=== PATIENT | female | born 1945 | race Caucasian/White ===

== ENCOUNTER 2018-03-04 10:20 | Inpatient (IN) | payer MEDICARE, MEDICAID ==
[~2018-03-04] VITALS: Ht 172.7 cm; Wt 95.2 kg
[2018-03-04] VITALS (13 sets, daily range): BP systolic 71–89; BP diastolic 53–67
[~2018-03-04 10:20] MED LIST: ALEN70TA13 PO; CLON-527 PO; DOXE50CA4 PO; GABA-532 PO; HYDR-4353 PO; LANS30CA56 PO; LEVO100T PO; LISI10TA4 PO; ROPI1TAB2 PO; VERA240C2 PO; etomidate 2mg/ml inj. ONE
[2018-03-04] MEDS ORDERED: normal saline 1000ML IV soln IV ONE (10:35)
--- NOTE | 2018-03-04 10:40 | NUR ---
DR STRICKLAND NOTIFIES OF PT BP 68/32. DR STRICKLAND AT BEDSIDE.
--- NOTE | 2018-03-04 11:22 | NUR ---
PT BACK FROM CT ACCOMPANIED BY MARTA ROB
[2018-03-04 11:35] LABS: ALBUMIN 2.4 G/DL (3.4-5.0); ANION GAP 20 (8-16); BILIRUBIN,TOTAL 2.2 MG/DL (0.1-1.0); BLOOD UREA NITROGEN 70 MG/DL (7-18); BUN/CREATININE RATIO 23.6 (6.6-38.0); CALCIUM 7.6 MG/DL (8.5-10.1); CHLORIDE 97 MMOL/L (99-107); CREATININE 2.96 MG/DL (0.40-0.90); GLUCOSE 91 MG/DL (70-104); MAGNESIUM 1.2 MG/DL (1.5-2.4); SODIUM 140 MMOL/L (135-145); TOTAL CARBON DIOXIDE 23.4 MMOL/L (24-32); TOTAL PROTEIN 5.6 G/DL (6.4-8.2); eGFR 15 ML/MIN
[2018-03-04 11:36] LABS: ALANINE AMINOTRANSFERASE 607 U/L (12-78); ALBUMIN/GLOBULIN RATIO 0.8 (1.1-1.5); ALKALINE PHOSPHATASE 238 IU/L (46-116); ASPARTATE AMINO TRANSFERASE 186 U/L (10-37); LIPASE 51 U/L (73-393)
[2018-03-04 11:38] LABS: INR 1.1 INR; PARTIAL THROMBOPLASTIN TIME 37 SECONDS (22-32); PROTHROMBIN TIME 11.4 SECONDS (9.0-12.0)
[2018-03-04 11:39] LABS: POTASSIUM 2.4 MMOL/L (3.5-5.1)
[2018-03-04] MEDS ORDERED: potassium Cl 40 mEq/NS 500ml IV ONE (11:40)
[2018-03-04] MEDS ORDERED: normal saline 1000ML IV soln IVB ONE ×2 (11:45→12:25)
[2018-03-04] MEDS ORDERED: Potassium Cl 40 MEQ in NS 500 ML IV ONE (11:50)
[2018-03-04 11:56] LABS: BASOPHILS % (AUTO) 0.1 % (0-1); EOSINOPHILS % (AUTO) 0.1 % (0-6); HEMATOCRIT 38.6 % (35.0-45.0); HEMOGLOBIN 12.8 g/dl (12.0-16.0); LYMPHOCYTES # (AUTO) 0.2 X10'3 (1.1-4.8); LYMPHOCYTES % (AUTO) 5.2 % (21-51); MEAN CORPUSCULAR HEMOGLOBIN 31.7 PG (27.0-31.0); MEAN CORPUSCULAR HGB CONC 33.2 % (33.0-36.5); MEAN CORPUSCULAR VOLUME 95.5 FL (78-98); MEAN PLATELET VOLUME 8.8 FL (7.4-10.4); MONOCYTES # (AUTO) 0.2 X10'3 (0-0.9); MONOCYTES % (AUTO) 6.1 % (2-12); NEUTROPHILS % (AUTO) 88.5 % (42-75); PLATELET COUNT 151 X10'3 (140-440); RED BLOOD COUNT 4.04 X10'6 (4.20-5.60); WHITE BLOOD COUNT 3.4 X10'3 (4.5-11.0)
[2018-03-04] MEDS ORDERED: levoFLOXACIN-Levaquin 750MG/D5 150 ML IV ONE (12:05)
[2018-03-04] MEDS ORDERED: metroNIDAZOLE-Flagyl 500mg/NS 100 ML IV ONE (12:05)
[2018-03-04 12:13] LABS: PLATELET ESTIMATE NORMAL; TOTAL CELLS COUNTED 100
[2018-03-04] MEDS ORDERED: potassium Cl 40MEQ/250ML bag 250 ML IV PRN ×2 (12:15→17:05)
[2018-03-04] MEDS ORDERED: ondansetron/PF 4mg/2ml inj IV PRN (12:15)
[2018-03-04] MEDS ORDERED: potassium Cl 20 mEq SR tablet PO PRN ×2 (12:15)
[2018-03-04] MEDS ORDERED: potassium Cl 40MEQ/250ML bag 250 ML IV SCH (12:15)
[2018-03-04] MEDS ORDERED: potassium Cl 40MEQ/NS 500ml 500 ML IV PRN ×2 (12:15)
[2018-03-04] MEDS ORDERED: acetaminophen 325mg tablet PO PRN ×2 (12:15)
[2018-03-04 12:23] LABS: CLARITY,URINE CLOUDY (Clear); COLOR,URINE BROWN (Yellow); GLUCOSE, URINE 100 mg/dl (Neg); KETONES,URINE TRACE mg/dl (Neg); LEUKOCYTE ESTERASE ,URINE NEGATIVE (Neg); OCCULT BLOOD,URINE NEGATIVE (Neg); PROTEIN,URINE 30 mg/dl (Neg)
[2018-03-04 12:25] LABS: UA COLLECTION TYPE FOLEY CATH
[2018-03-04 12:28] LABS: NITRITES, URINE NEGATIVE (Neg)
[2018-03-04 12:32] LABS: AMORPHOUS URATES 3+; BACTERIA,URINE FEW /HPF (Neg); SQUAMOUS EPITHELIAL CELL,UR FEW /LPF (FEW)
--- NOTE | 2018-03-04 12:40 | NUR ---
DR STRICKLAND AT BEDSIDE PLACING A 4 LUMEN CENTRAL LINE
[2018-03-04] MEDS: normal saline 1000ml 1,000 ML IV SCH ×2 (13:05→20:20)
[2018-03-04] MEDS: NORepinephrine 8mg/ 250ml NS 250 ML IV SCH ×2 (13:19→22:50)
--- NOTE | 2018-03-04 13:47 | NUR ---
NG TUBE SECRETIONS IN CANNISTER 900 MLS. COLOR IS GREEN AND CLOUDY.
--- NOTE | 2018-03-04 14:45 | NUR ---
Patient in room CICU 2011. I have received report from Er nurse Carola and had the opportunity to ask questions and assume patient care.
[2018-03-04 14:47] LABS: UA EOSINOPHILS NO EOS /HPF
[2018-03-04] MEDS: morphine 4 MG/ML inj SYRINge IV PRN ×2 (14:55→20:55)
[2018-03-04 15:21] LABS: OXYGEN SATURATION (MIXED VEN) 65.6 % (60-80); PO2 MIXED VENOUS (TEMP COR) 35.8 mmHg (35-46)
[2018-03-04] MEDS ORDERED: metroNIDAZOLE-Flagyl 500mg/NS 100 ML IV SCH (16:00)
[2018-03-04 16:57] LABS: POTASSIUM 3.2 MMOL/L (3.5-5.1)
[2018-03-04] MEDS ORDERED: magnesium 4gm in 100ml NS 100 ML IV PRN (17:05)
[2018-03-04] MEDS ORDERED: magnesium Cl slow-release 64mg tablet PO PRN (17:05)
--- NOTE | 2018-03-04 18:40 | NUR ---
I have received report and assumed care of pt, pt resting in bed rise and fall of chest cavity equile and symmetrical. pt on Levophed via cvl to keep MAP greater then 65, pt is in a ST rate in the 115 range, electrolytes replaced per md orders, abdomen is tender and firm, pt able to speak in 3 to 4 sentences, resp are gagged and grunting, minimal urine output, spoke to oncall BIG DATA HADOOP DEVELOPER who will be in to evaluate pt.
[2018-03-04] MEDS: docusate sod 100mg capsule PO SCH (20:00)
[2018-03-04] MEDS: lactobacillus rhamnosus 10,000 MMU CELLS/CAPSULE PO SCH (20:00)
[2018-03-04] MEDS ORDERED: dextrose 50%-water 50ml dispensing syringe IV ONE (20:15)
--- NOTE | 2018-03-04 20:20 | NUR ---
pts blood pressure continues to decrease PA at bedside evaluating pt, he has made multiple calls to the data modeler, reservations sales agent NATALIIA KC and Dr. Jolley, orders received for albumin and a ns bolus max amount of Levophed infusing, vasopressin added per ECHOCARDIOGRAPHER orders Dr. Lacy contacted Dr Jolley who came in and evaluated pt. new orders received to fluid bolus pt with NS to keep CVP greater then 12 and for NG treatment
[2018-03-04 20:23] LABS: BASOPHILS % (AUTO) 0.1 % (0-1); EOSINOPHILS # (AUTO) 0.1 X10'3 (0-0.9); EOSINOPHILS % (AUTO) 2.6 % (0-6); HEMATOCRIT 38.4 % (35.0-45.0); LYMPHOCYTES # (AUTO) 0.1 X10'3 (1.1-4.8); LYMPHOCYTES % (AUTO) 2.1 % (21-51); MEAN CORPUSCULAR HEMOGLOBIN 32.3 PG (27.0-31.0); MEAN CORPUSCULAR HGB CONC 33.9 % (33.0-36.5); MEAN CORPUSCULAR VOLUME 95.3 FL (78-98); MEAN PLATELET VOLUME 9.1 FL (7.4-10.4); MONOCYTES % (AUTO) 0.3 % (2-12); NEUTROPHILS # (AUTO) 5.2 X10'3 (1.8-7.7); NEUTROPHILS % (AUTO) 94.9 % (42-75); PLATELET COUNT 150 X10'3 (140-440); RED BLOOD COUNT 4.03 X10'6 (4.20-5.60); RED CELL DISTRIBUTION WIDTH 13.9 % (11.5-14.5); WHITE BLOOD COUNT 5.4 X10'3 (4.5-11.0)
[2018-03-04] MEDS: famotidine/PF 10 mg/ml inj IV SCH (20:25)
[2018-03-04 20:32] LABS: ALANINE AMINOTRANSFERASE 473 U/L (12-78); ALBUMIN/GLOBULIN RATIO 0.6 (1.1-1.5); ANION GAP 16 (8-16); ASPARTATE AMINO TRANSFERASE 114 U/L (10-37); BILIRUBIN,TOTAL 1.8 MG/DL (0.1-1.0); BLOOD UREA NITROGEN 69 MG/DL (7-18); CALCIUM 6.4 MG/DL (8.5-10.1); CHLORIDE 104 MMOL/L (99-107); CREATININE 2.46 MG/DL (0.40-0.90); GLUCOSE 67 MG/DL (70-104); POTASSIUM 3.1 MMOL/L (3.5-5.1); SODIUM 142 MMOL/L (135-145); TOTAL CARBON DIOXIDE 22.1 MMOL/L (24-32); TOTAL PROTEIN 5.1 G/DL (6.4-8.2); eGFR 19 ML/MIN
[2018-03-04 20:33] LABS: ALKALINE PHOSPHATASE 179 IU/L (46-116)
[2018-03-04 20:39] LABS: PHOSPHORUS 5.3 MG/DL (2.3-4.5)
[2018-03-04 20:40] LABS: MAGNESIUM 0.9 MG/DL (1.5-2.4)
[2018-03-04] MEDS: magnesium 2GM in 50ml NS 50 ML IV PRN (20:56)
[2018-03-04] MEDS ORDERED: HYDROmorphone/NS 1 mg/ml CADD 50 ML IV SCH (21:20)
[2018-03-04] MEDS ORDERED: sodium bicarbonate (8.4%) inj. 75 MEQ in sodium chloride 0.45% 1,025 ML IV SCH (21:20)
[2018-03-04] MEDS: potassium Cl 40MEQ/250ML bag 250 ML IV PRN (21:27)
[2018-03-04] MEDS ORDERED: vancomycin/NS 1 GM ADD-VANTAGE 250 ML IV ONE (22:00)
[2018-03-04] MEDS ORDERED: albumin (Human) 5% 250ml 250 ML IV ONE (22:30)
[2018-03-04] MEDS ORDERED: albumin (Human) 5% 250ml 500 ML IV ONE (22:32)
[2018-03-04] MEDS: vasopressin inj. 60 UNIT in normal saline 100ml IV soln 97 ML IV SCH (22:50)
[2018-03-04] MEDS: albumin (Human) 5% 250ml 250 ML IV SCH ×2 (22:53→23:04)
[2018-03-04 22:56] LABS: ABG HCO3 18.9 mmol/L (22.0-26.0); ABG OXYGEN SATURATION 94.4 % (95-98); ABG PCO2 (T) 36.2 mmHg (32.0-45.0); ABG PH (T) 7.337 (7.350-7.450); ABG PO2 (T) 80.7 mmHg (83-108); ALLEN'S TEST Positive; FCOHb 1.3 % (0.5-1.5); FLOW 4 L/min; FMetHb 0.2 % (0.3-1.12); PATIENT TEMPERATURE 37.4; RESPIRATORY RATE (OBSERVED) 22 b/min; TOTAL HEMOGLOBIN 13.1 G/dl (12.0-16.0)
[2018-03-04] MEDS ORDERED: meropenem inj 1 GM in normal saline 100ml IV soln 100 ML IV SCH (23:00)
[2018-03-04 23:03] LABS: AMYLASE 13 U/L (25-115); LIPASE < 50 U/L (73-393)
[2018-03-04] MEDS: hydrocortisone sod succ/PF 100mg/2ml inj. IV SCH (23:13)
[2018-03-05] VITALS (24 sets, daily range): BP systolic 72–116; BP diastolic 51–73
[2018-03-05] MEDS ORDERED: fluconazole-Diflucan 200mg/NS 100 ML IV SCH
[2018-03-05] MEDS: normal saline 1000ml 1,000 ML IV SCH ×4 (01:51→21:51)
[2018-03-05 03:13] LABS: ANION GAP 16 (8-16); BASOPHILS % (AUTO) 0 % (0-1); BLOOD UREA NITROGEN 65 MG/DL (7-18); BUN/CREATININE RATIO 29.4 (6.6-38.0); CHLORIDE 106 MMOL/L (99-107); CREATININE 2.21 MG/DL (0.40-0.90); EOSINOPHILS % (AUTO) 0 % (0-6); GLUCOSE 75 MG/DL (70-104); HEMATOCRIT 36.3 % (35.0-45.0); HEMOGLOBIN 11.8 g/dl (12.0-16.0); LYMPHOCYTES # (AUTO) 0.2 X10'3 (1.1-4.8); LYMPHOCYTES % (AUTO) 1.7 % (21-51); MEAN CORPUSCULAR HEMOGLOBIN 31.9 PG (27.0-31.0); MEAN CORPUSCULAR HGB CONC 32.7 % (33.0-36.5); MEAN CORPUSCULAR VOLUME 97.7 FL (78-98); MEAN PLATELET VOLUME 9.4 FL (7.4-10.4); MONOCYTES # (AUTO) 0.1 X10'3 (0-0.9); MONOCYTES % (AUTO) 0.7 % (2-12); NEUTROPHILS # (AUTO) 9.7 X10'3 (1.8-7.7); NEUTROPHILS % (AUTO) 97.6 % (42-75); PLATELET COUNT 132 X10'3 (140-440); POTASSIUM 3.5 MMOL/L (3.5-5.1); RED BLOOD COUNT 3.71 X10'6 (4.20-5.60); RED CELL DISTRIBUTION WIDTH 13.9 % (11.5-14.5); SODIUM 142 MMOL/L (135-145); WHITE BLOOD COUNT 9.9 X10'3 (4.5-11.0)
[2018-03-05 03:14] LABS: ALANINE AMINOTRANSFERASE 375 U/L (12-78); ALBUMIN 2.3 G/DL (3.4-5.0); ALBUMIN/GLOBULIN RATIO 0.9 (1.1-1.5); ALKALINE PHOSPHATASE 147 IU/L (46-116); AMYLASE 10 U/L (25-115); ASPARTATE AMINO TRANSFERASE 79 U/L (10-37); BILIRUBIN,TOTAL 1.8 MG/DL (0.1-1.0); CALCIUM 6.2 MG/DL (8.5-10.1); LIPASE < 50 U/L (73-393); MAGNESIUM 2.5 MG/DL (1.5-2.4); PHOSPHORUS 5.5 MG/DL (2.3-4.5); eGFR 22 ML/MIN
[2018-03-05] MEDS: diatr meglu/diatrizoate 30ml oral sol.-(3 dose) bottle PO SCH ×2 (06:00)
--- NOTE | 2018-03-05 06:29 | NUR ---
report given to rec rn plan of care reviewed
[2018-03-05] MEDS: docusate sod 100mg capsule PO SCH ×2 (06:45→19:07)
[2018-03-05] MEDS: morphine 4 MG/ML inj SYRINge IV PRN ×5 (06:59→23:14)
--- NOTE | 2018-03-05 07:00 | NUR ---
Patient's MAP greater that 60, able to titrate Vasopressin OFF
[2018-03-05 07:36] LABS: ALANINE AMINOTRANSFERASE 326 U/L (12-78); ALBUMIN/GLOBULIN RATIO 0.8 (1.1-1.5); ALKALINE PHOSPHATASE 132 IU/L (46-116); ANION GAP 16 (8-16); ASPARTATE AMINO TRANSFERASE 64 U/L (10-37); BILIRUBIN,TOTAL 1.7 MG/DL (0.1-1.0); BLOOD UREA NITROGEN 61 MG/DL (7-18); BUN/CREATININE RATIO 31.4 (6.6-38.0); CHLORIDE 109 MMOL/L (99-107); CREATININE 1.94 MG/DL (0.40-0.90); GLUCOSE 69 MG/DL (70-104); MAGNESIUM 2.2 MG/DL (1.5-2.4); POTASSIUM 3.2 MMOL/L (3.5-5.1); SODIUM 143 MMOL/L (135-145); TOTAL CARBON DIOXIDE 17.7 MMOL/L (24-32); TOTAL PROTEIN 4.6 G/DL (6.4-8.2); eGFR 25 ML/MIN
[2018-03-05] MEDS: lactobacillus rhamnosus 10,000 MMU CELLS/CAPSULE PO SCH ×2 (08:00→19:08)
[2018-03-05] MEDS ORDERED: levoFLOXACIN-Levaquin 250mg/D5 50 ML IV SCH (08:00)
--- NOTE | 2018-03-05 08:00 | NUR ---
500ml bolus given because CVP less than 5, after 500ml CVP still 4 another 500ml bolus given, CVP 5, another 500ml bolus given. CVP now 8 after a total of 1500ml NS
[2018-03-05 08:03] LABS: CALCIUM 5.8 MG/DL (8.5-10.1)
[2018-03-05] MEDS: famotidine/PF 10 mg/ml inj IV SCH ×2 (08:31→19:05)
[2018-03-05] MEDS: hydrocortisone sod succ/PF 100mg/2ml inj. IV SCH ×4 (08:31→19:05)
[2018-03-05] MEDS ORDERED: dextrose 50%-water 50ml dispensing syringe IV ONE (08:36)
[2018-03-05] MEDS: potassium Cl 40MEQ/250ML bag 250 ML IV PRN ×2 (08:40→17:46)
[2018-03-05] MEDS ORDERED: dextrose 50%-water 50ml dispensing syringe IV PRN (08:40)
[2018-03-05] MEDS ORDERED: calcium chloride inj. 1,000 MG in normal saline 100ml IV soln 90 ML IV ONE (09:45)
[2018-03-05] MEDS ORDERED: normal saline 1000ml 1,000 ML IV ONE ×2 (10:55→12:55)
[2018-03-05] MEDS: metroNIDAZOLE-Flagyl 500mg/NS 100 ML IV SCH ×3 (11:35→23:14)
[2018-03-05] MEDS: CefTRIAXone 2gm/D5W 50ml 50 ML IV SCH (11:36)
[2018-03-05] MEDS: NORepinephrine 8mg/ 250ml NS 250 ML IV SCH ×2 (12:58→23:10)
[2018-03-05] MEDS: dextrose 50%-water 50ml dispensing syringe IV PRN ×2 (13:11→16:06)
--- NOTE | 2018-03-05 13:34 | NUR ---
Talked with patient's Nephew/caregiver. He states that he will be here tomarrow for rounds to discuss advanced directive and plan of care
--- NOTE | 2018-03-05 14:12 | NUR ---
TPN/Malnutrition Consults: Pt admit w/ abdominal pain and constipation past few days CT revealed dilated esophagus, stomach, proximal duodenum. Currently third spacing into intestine r/t SBO per MD note. DX septic shock, SBO, hypokalemia. D5 currently running for persistent low GLU. TPN to start today; recs below. Pt has no significant wt loss hx, visibly small but not cachectic, no significant weakness/edema. Does not qualify for malnutrition at this time. Rec; 1. TPN via central line using Clinimix E 5/15 2L bag w/ 100ml 20% intralipids at 100ml/hr goal; to provide 2400ml fluid, 114g AA, 343g DEX(3.7mg/kg/min), and 1396 total non-protein kcals. Initiate @ 30ml/hr and if tolerated advance Q12 to goal. 2. prealbumin Q /, daily wts 3. monitor for signs of refeeding syndrome 4. advance diet per MD to regular once GI function returns and safe to swallow Addendum: 03/05/18 at [address] Amended: Links added.
[2018-03-05] MEDS ORDERED: total parenteral nutrition 1 EACH, calcium gluconate 12 MEQ, magnesium 16 MEQ, sodium 8... IV SCH ×14 (15:55)
--- NOTE | 2018-03-05 16:00 | NUR ---
Patient now converted to Afib with a rate 120-138, Patient's BP dropping with MAP below 60. Titrating Levo to maintain BP. MD notified. New order for Amiodarone bolus and gtt given.
[2018-03-05] MEDS ORDERED: Dextrose 10%-water IV solution 1,000 ML IV PRN (16:02)
[2018-03-05] MEDS ORDERED: amiodarone 150mg/dext, iso-os 100 ML IV ONE (16:25)
[2018-03-05 16:38] LABS: ALANINE AMINOTRANSFERASE 268 U/L (12-78); ALBUMIN 1.8 G/DL (3.4-5.0); ALBUMIN/GLOBULIN RATIO 0.7 (1.1-1.5); ALKALINE PHOSPHATASE 121 IU/L (46-116); ANION GAP 12 (8-16); ASPARTATE AMINO TRANSFERASE 53 U/L (10-37); BILIRUBIN,TOTAL 1.4 MG/DL (0.1-1.0); BLOOD UREA NITROGEN 54 MG/DL (7-18); BUN/CREATININE RATIO 32.9 (6.6-38.0); CHLORIDE 114 MMOL/L (99-107); CREATININE 1.64 MG/DL (0.40-0.90); GLUCOSE 74 MG/DL (70-104); MAGNESIUM 1.8 MG/DL (1.5-2.4); POTASSIUM 3.4 MMOL/L (3.5-5.1); PREALBUMIN 8.4 MG/DL (19-36); SODIUM 146 MMOL/L (135-145); TOTAL CARBON DIOXIDE 19.8 MMOL/L (24-32); TOTAL PROTEIN 4.5 G/DL (6.4-8.2); TRIGLYCERIDES 149 MG/DL (20-135); eGFR 31 ML/MIN
[2018-03-05 16:42] LABS: CALCIUM 5.8 MG/DL (8.5-10.1)
[2018-03-05] MEDS: amiodarone/D5 360MG/200ML BAG 200 ML IV SCH ×2 (16:54→21:43)
[2018-03-05] MEDS ORDERED: calcium chloride 100 MG/1 ML inj IV PRN (16:55)
[2018-03-05] MEDS ORDERED: calcium chloride inj. 1,000 MG in normal saline 100ml IV soln 100 ML IV PRN (17:10)
--- NOTE | 2018-03-05 18:30 | NUR ---
Patient in room CICU 2011. I have received report from Raulito ROB and Meka ROB and had the opportunity to ask questions and assume patient care.
--- NOTE | 2018-03-05 18:32 | NUR ---
[place] documentation: I have reviewed and agree with all interventions, assessments performed and documented by Raulito ROB.
--- NOTE | 2018-03-05 18:36 | NUR ---
[place] Medication Administration: For this medication-pass time frame, all medication were reviewed, dispensed, administered and documented per hospital policy by Raulito ROB .
[2018-03-05] MEDS: fat emulsion IV 100 ML, MVI, adult No.4 with vit. K 10 ML, Trace element-5 inj. 1 ML in... IV SCH ×4 (19:06)
--- NOTE | 2018-03-05 19:35 | NUR ---
Pt lung sounds coarse, Sats:92% on 6LNC. Having alot of difficulty clearing secretions. NG output 50mL/hr. CVP:16. Levophed@15mcg, MAP:69. Pt alternates between SR and Afib. Mary notified, orders received to match fluid input to output per hour.
[2018-03-05] MEDS ORDERED: morphine 4 MG/ML inj SYRINge IV PRN (19:55)
[2018-03-05 20:00] LABS: ABG BASE EXCESS -10.7 mmol/L (-2.0-3.0); ABG HCO3 17.3 mmol/L (22.0-26.0); ABG OXYGEN SATURATION 89.5 % (95-98); ABG PCO2 (T) 46.7 mmHg (32.0-45.0); ABG PH (T) 7.187 (7.350-7.450); ABG PO2 (T) 66.2 mmHg (83-108); ALLEN'S TEST Positive; FCOHb 0.7 % (0.5-1.5); FLOW 5 L/min; FMetHb 0.2 % (0.3-1.12); FO2Hb 88.7 % (94-100); PATIENT TEMPERATURE 37.1; RESPIRATORY RATE (OBSERVED) 20 b/min; TOTAL HEMOGLOBIN 12.9 G/dl (12.0-16.0)
[2018-03-05] MEDS ORDERED: sodium bicarbonate (8.4%) inj. 75 MEQ in sodium chloride 0.45% 1,025 ML IV SCH (21:20)
[2018-03-06] VITALS (23 sets, daily range): BP systolic 62–141; BP diastolic 39–76
[2018-03-06] MEDS: morphine 4 MG/ML inj SYRINge IV PRN ×2 (02:24→05:40)
[2018-03-06] MEDS: hydrocortisone sod succ/PF 100mg/2ml inj. IV SCH ×4 (02:28→20:56)
--- NOTE | 2018-03-06 02:45 | NUR ---
Titrating Levophed to keep MAP greater than 65. CVP:12, NG output 50mL/hr. Pt awakens to voice, speaks clearly at times but mostly moans in pain. Bilateral hands diaphoretic. Unable to tolerate laying flat to reposition, seated in bed at 50 degree angle, shifted hips and repositioned with 2 person assist, heels and elbows padded w/pillows. Awaiting AM lab results.
[2018-03-06 03:09] LABS: BASOPHILS % (AUTO) 0 % (0-1); EOSINOPHILS % (AUTO) 0 % (0-6); HEMATOCRIT 38.7 % (35.0-45.0); HEMOGLOBIN 12.7 g/dl (12.0-16.0); LYMPHOCYTES # (AUTO) 0.3 X10'3 (1.1-4.8); MEAN CORPUSCULAR HEMOGLOBIN 31.9 PG (27.0-31.0); MEAN CORPUSCULAR HGB CONC 32.9 % (33.0-36.5); MEAN CORPUSCULAR VOLUME 97.1 FL (78-98); MEAN PLATELET VOLUME 9.1 FL (7.4-10.4); MONOCYTES # (AUTO) 0.2 X10'3 (0-0.9); MONOCYTES % (AUTO) 0.7 % (2-12); NEUTROPHILS % (AUTO) 98.3 % (42-75); PLATELET COUNT 115 X10'3 (140-440); RED BLOOD COUNT 3.98 X10'6 (4.20-5.60); RED CELL DISTRIBUTION WIDTH 14.8 % (11.5-14.5)
[2018-03-06 03:23] LABS: WHITE BLOOD COUNT 28.4 X10'3 (4.5-11.0)
[2018-03-06 03:25] LABS: ALANINE AMINOTRANSFERASE 269 U/L (12-78); ALBUMIN/GLOBULIN RATIO 0.7 (1.1-1.5); ALKALINE PHOSPHATASE 145 IU/L (46-116); ANION GAP 14 (8-16); ASPARTATE AMINO TRANSFERASE 43 U/L (10-37); BILIRUBIN,TOTAL 1.1 MG/DL (0.1-1.0); BLOOD UREA NITROGEN 61 MG/DL (7-18); BUN/CREATININE RATIO 32.3 (6.6-38.0); CALCIUM 6.8 MG/DL (8.5-10.1); CHLORIDE 114 MMOL/L (99-107); CREATININE 1.89 MG/DL (0.40-0.90); GLUCOSE 127 MG/DL (70-104); MAGNESIUM 1.9 MG/DL (1.5-2.4); POTASSIUM 4.3 MMOL/L (3.5-5.1); SODIUM 146 MMOL/L (135-145); TOTAL CARBON DIOXIDE 17.6 MMOL/L (24-32); eGFR 26 ML/MIN
[2018-03-06 03:43] LABS: TOTAL CELLS COUNTED 100
--- NOTE | 2018-03-06 03:43 | NUR ---
AM labs reviewed. Titrating Levophed to keep MAP greater than 65. Critical WBC count of 28.4 called to Mary, plus update of pt's current VS, NG output and decreased urine output. No new orders at this time.
[2018-03-06 03:44] LABS: BURR CELLS 2+; PLATELET ESTIMATE DECREASED; TOXIC GRANULATION 2+; TOXIC VACUOLATION FEW
[2018-03-06] MEDS: normal saline 1000ml 1,000 ML IV SCH ×2 (05:02→13:15)
[2018-03-06] MEDS: amiodarone/D5 360MG/200ML BAG 200 ML IV SCH ×4 (05:02→22:42)
[2018-03-06] MEDS: NORepinephrine 8mg/ 250ml NS 250 ML IV SCH ×3 (05:03→16:28)
--- NOTE | 2018-03-06 05:10 | NUR ---
Pt agitated p/chest xray, attempting to get out of bed, calling out:"Help me!" Morphine given for pain of 7-10 per non verbal scale. Mary notified, orders received.
[2018-03-06] MEDS ORDERED: LORazepam 2 mg/ml vial IV PRN (05:55)
--- NOTE | 2018-03-06 06:15 | NUR ---
DURING SHIFT CHANGE REPORT patient noted to have bp cuff reading "no determination", upon attempting to obtain ABG, BP cuff restarted with n o success to multiple areas. LEvophed turned on, still no success with obtaining BP, LEvophed turned to 20mcg with vasopressin at 1.2. Continue to be unable to obtain BP. Doppler reveals systolic 68.
--- NOTE | 2018-03-06 06:30 | NUR ---
Patient in room CICU 2011. I have received report from Preethi Bains RN, assumed patient care.
--- NOTE | 2018-03-06 06:30 | NUR ---
Pt hypotensive, titrating up pressors, sats:86% on 15L HiFloNC. RT attempting to get ABG, AM chest xray reviewed, Mary updated,orders received. Problems reprioritized. Patient report given, questions answered & plan of care reviewed with Nicole ROB.
[2018-03-06 06:50] LABS: ABG HCO3 15.2 mmol/L (22.0-26.0); ABG OXYGEN SATURATION 85.1 % (95-98); ABG PCO2 (T) 59.1 mmHg (32.0-45.0); ABG PH (T) 7.027 (7.350-7.450); ABG PO2 (T) 61.7 mmHg (83-108); ALLEN'S TEST Positive; FCOHb 0.4 % (0.5-1.5); FLOW 10 L/min; FMetHb 0.1 % (0.3-1.12); FO2Hb 84.7 % (94-100); PATIENT TEMPERATURE 36.9; TOTAL HEMOGLOBIN 13.9 G/dl (12.0-16.0)
--- NOTE | 2018-03-06 07:00 | NUR ---
DR. HASTINGS UPDATED Contacted Dr. Hastings via phone. Informed him of patient's ABG, Levo on 20mcg, vasopressin 1.2. He stated to increase LEvophed to 50mcg, give 2 amps of bicarb, start bipap.
[2018-03-06] MEDS ORDERED: sodium bicarbonate (8.4%) 1 mEq/ml syringe ONE ×2 (07:10→07:18)
[2018-03-06] MEDS ORDERED: sodium bicarbonate (8.4%) inj. 50 MEQ in normal saline 1000ml 1,000 ML IV SCH ×4 (07:20)
--- NOTE | 2018-03-06 07:27 | NUR ---
attempted to reach kiki Parmar, no answer and no voicemail to leave a message to update regarding patient condition.
[2018-03-06] MEDS: docusate sod 100mg capsule PO SCH ×2 (08:00→20:00)
[2018-03-06] MEDS: lactobacillus rhamnosus 10,000 MMU CELLS/CAPSULE PO SCH ×2 (08:00→20:00)
[2018-03-06] MEDS ORDERED: etomidate 2mg/ml inj. IV ONE (08:10)
[2018-03-06] MEDS ORDERED: midazolam 2 mg/2 ml injection IV ONE (08:10)
[2018-03-06] MEDS ORDERED: MIDAZolam 5mg/ml 2ml vial IV ONE (08:10)
[2018-03-06] MEDS ORDERED: ipratropium/albuterol 3ml nebule NEB PRN (08:10)
[2018-03-06] MEDS ORDERED: fentaNYL/PF 50MCG/1 ML 2ML syringe IV PRN (08:10)
[2018-03-06] MEDS ORDERED: midazolam 2 mg/2 ml injection ONE (08:12)
[2018-03-06] MEDS: diatr meglu/diatrizoate 30ml oral sol.-(3 dose) bottle PO SCH ×3 (08:24→09:48)
--- NOTE | 2018-03-06 08:51 | NUR ---
contacted nephew he's on his way
--- NOTE | 2018-03-06 08:56 | NUR ---
NO BP unable to obtain BP cuff despite all arteries tried. Doppler systolic is 110. Pulse is starting to decrease and become thready. Currently intubated and saturations via pulse ox are 97% on 100% AC vent. Rate 24. peep 5.
--- NOTE | 2018-03-06 09:03 | NUR ---
CONVERTED TO SINUS RHYTHM Patient HR 79, converted from a.fib to Sinus Rhythm. Charge, Yeison ROB updated regarding patient condition, continued tracheal deviation.
[2018-03-06] MEDS: metroNIDAZOLE-Flagyl 500mg/NS 100 ML IV SCH (09:10)
[2018-03-06] MEDS: CefTRIAXone 2gm/D5W 50ml 50 ML IV SCH (09:10)
[2018-03-06] MEDS: famotidine/PF 10 mg/ml inj IV SCH ×2 (09:10→20:56)
[2018-03-06] MEDS: midazolam 100mg in NS 100ml 100 ML IV PRN (09:24)
[2018-03-06] MEDS: FENTANYL-0.9 % NACL/PF 100 ML IV PRN (09:24)
--- NOTE | 2018-03-06 09:55 | NUR ---
DR. HASTINGS GAVE TO OK FOR ME TO PUT IN THE ORDER FOR DNR. Discussed with Ghulamsharonstephon, only determined living decision maker, the options of what wishes the patient has expressed. He said she would not CPR if it would not revive her, he wants no CPR and no defibrillation after first educating about what no cpr, no defib, advance directive versus DNR is. Ghulam feels confident his aunt would not want cpr or defib. Order placed per Dr. Hastings ok.
[2018-03-06] MEDS: ipratropium/albuterol 3ml nebule NEB SCH ×4 (10:51→23:29)
--- NOTE | 2018-03-06 11:05 | NUR ---
DR. BEBO Fierro rounded on patient, updated on current condition and events of morning. She has stated that patient blood culture grew back ESBL/e.coli. Patient placed in isolation.
--- NOTE | 2018-03-06 11:22 | NUR ---
UPDATE FROM DR. HASTINGS Touched base with Dr. Hastings. He states he has seen patient's CT image, read the report. He has also talked with Dr. Jolley, there will be no surgery. He also states that he informed Dr. Jolley about her gallstone, medically manage at this time. Keep Suction to continuous, stomach appears to be decompressed.
[2018-03-06 12:10] LABS: ABG BASE EXCESS -14.5 mmol/L (-2.0-3.0); ABG HCO3 14.5 mmol/L (22.0-26.0); ABG OXYGEN SATURATION 90.6 % (95-98); ABG PCO2 (T) 46.5 mmHg (32.0-45.0); ABG PH (T) 7.114 (7.350-7.450); ABG PO2 (T) 67.3 mmHg (83-108); ALLEN'S TEST Positive; FCOHb 0.5 % (0.5-1.5); FMetHb 0.1 % (0.3-1.12); FO2Hb 90.1 % (94-100); PATIENT TEMPERATURE 37.3; TOTAL HEMOGLOBIN 13.7 G/dl (12.0-16.0)
[2018-03-06] MEDS: meropenem inj 1 GM in normal saline 100ml IV soln 100 ML IV SCH ×2 (13:29→20:56)
--- NOTE | 2018-03-06 14:19 | NUR ---
BLOOD SUGAR [address] Hastings of patient's blood sugar, requested to start the hyperglycemic protocol. He said "no, just wait".
--- NOTE | 2018-03-06 15:12 | NUR ---
REPEAT THE ABG Dr. Hastings informed that coming down on pressors, he wants a repeat ABG. Notified, RT Demi.
[2018-03-06 15:30] LABS: ABG HCO3 15.4 mmol/L (22.0-26.0); ABG OXYGEN SATURATION 90.6 % (95-98); ABG PCO2 (T) 45.2 mmHg (32.0-45.0); ABG PH (T) 7.151 (7.350-7.450); ABG PO2 (T) 65.7 mmHg (83-108); FCOHb 0.9 % (0.5-1.5); FO2Hb 89.8 % (94-100); MINUTE VOLUME 9 L/min; PATIENT TEMPERATURE 37.3; PEEP 5 cm H2O; RESPIRATORY RATE 24 b/min; RESPIRATORY RATE (OBSERVED) 24 b/min; TIDAL VOLUME 350 mL; TOTAL HEMOGLOBIN 13.1 G/dl (12.0-16.0)
[2018-03-06] MEDS: vasopressin inj. 60 UNIT in normal saline 100ml IV soln 97 ML IV SCH (16:25)
[2018-03-06] MEDS: sodium bicarbonate (8.4%) inj. 150 MEQ in dextrose 5%-water 1,000 ML IV SCH ×2 (17:35→23:25)
--- NOTE | 2018-03-06 17:41 | NUR ---
DISPOSITION OF BELONGINGS Nephew, Ghulam, requesting patient's items. Informed him that at this time I can't release her wallet, but I gave him her clothes. Slippers, pj pants, shirt. ER coming to place rings, wallet, marino into safe.
--- NOTE | 2018-03-06 18:25 | NUR ---
Problems reprioritized. Patient report given, questions answered & plan of care reviewed with Preethi Bains RN.
--- NOTE | 2018-03-06 18:30 | NUR ---
Patient in room CICU 2011. I have received report from Nicole ROB and had the opportunity to ask questions and assume patient care.
[2018-03-06] MEDS ORDERED: meropenem inj 1 GM in normal saline 100ml IV soln 100 ML IV SCH ×4 (20:00)
[2018-03-06] MEDS ORDERED: glucagon, human recombinant 1mg kit SUBCUT PRN (20:15)
[2018-03-06] MEDS ORDERED: MESSAGE TO PHARMACY PO ONE (20:15)
--- NOTE | 2018-03-06 20:45 | NUR ---
Pt's wallet and 4 white metal colored rings sent to safe
[2018-03-06] MEDS: insulin glargine (Lantus) pen - multi-dose SQ SCH (21:00)
[2018-03-06] MEDS: insulin regular, human vial - multi-dose SQ SCH (22:38)
[2018-03-06] MEDS: fat emulsion IV 100 ML, MVI, adult No.4 with vit. K 10 ML, Trace element-5 inj. 1 ML in... IV SCH ×4 (22:50)
--- NOTE | 2018-03-06 23:25 | NUR ---
Titrating Levophed to keep MAP greater than 65.
[2018-03-07] VITALS (24 sets, daily range): BP systolic 85–130; BP diastolic 51–74
[2018-03-07] MEDS: hydrocortisone sod succ/PF 100mg/2ml inj. IV SCH ×3 (02:20→16:25)
[2018-03-07] MEDS: NORepinephrine 8mg/ 250ml NS 250 ML IV SCH ×4 (02:21→17:14)
[2018-03-07] MEDS: amiodarone/D5 360MG/200ML BAG 200 ML IV SCH ×3 (02:22→17:13)
[2018-03-07] MEDS: insulin regular, human vial - multi-dose SQ SCH ×4 (02:26→20:31)
[2018-03-07] MEDS: sodium bicarbonate (8.4%) inj. 150 MEQ in dextrose 5%-water 1,000 ML IV SCH ×3 (02:27→20:57)
[2018-03-07] MEDS: ipratropium/albuterol 3ml nebule NEB SCH ×6 (03:05→23:21)
[2018-03-07 03:21] LABS: ABG BASE EXCESS -9.6 mmol/L (-2.0-3.0); ABG HCO3 18.9 mmol/L (22.0-26.0); ABG OXYGEN SATURATION 92.3 % (95-98); ABG PCO2 (T) 51.7 mmHg (32.0-45.0); ABG PO2 (T) 71.1 mmHg (83-108); FCOHb 0.7 % (0.5-1.5); FMetHb 0.3 % (0.3-1.12); FO2Hb 91.4 % (94-100); PEEP 5 cm H2O; RESPIRATORY RATE 24 b/min; RESPIRATORY RATE (OBSERVED) 25 b/min; TIDAL VOLUME 350 mL; TOTAL HEMOGLOBIN 12.7 G/dl (12.0-16.0)
[2018-03-07 03:31] LABS: ALANINE AMINOTRANSFERASE 167 U/L (12-78); ALBUMIN 1.6 G/DL (3.4-5.0); ALBUMIN/GLOBULIN RATIO 0.5 (1.1-1.5); ALKALINE PHOSPHATASE 140 IU/L (46-116); ANION GAP 11 (8-16); ASPARTATE AMINO TRANSFERASE 20 U/L (10-37); BILIRUBIN,TOTAL 0.6 MG/DL (0.1-1.0); BLOOD UREA NITROGEN 72 MG/DL (7-18); CALCIUM 6.6 MG/DL (8.5-10.1); CHLORIDE 113 MMOL/L (99-107); GLUCOSE 352 MG/DL (70-104); PHOSPHORUS 5.5 MG/DL (2.3-4.5); POTASSIUM 3.5 MMOL/L (3.5-5.1); SODIUM 145 MMOL/L (135-145); TOTAL CARBON DIOXIDE 20.7 MMOL/L (24-32); TOTAL PROTEIN 4.7 G/DL (6.4-8.2); eGFR 24 ML/MIN
[2018-03-07 03:34] LABS: BASOPHILS % (AUTO) 0.2 % (0-1); EOSINOPHILS % (AUTO) 0 % (0-6); HEMATOCRIT 35.8 % (35.0-45.0); HEMOGLOBIN 12.2 g/dl (12.0-16.0); LYMPHOCYTES # (AUTO) 0.2 X10'3 (1.1-4.8); LYMPHOCYTES % (AUTO) 0.9 % (21-51); MEAN CORPUSCULAR HEMOGLOBIN 33.4 PG (27.0-31.0); MEAN CORPUSCULAR HGB CONC 34.2 % (33.0-36.5); MEAN CORPUSCULAR VOLUME 97.7 FL (78-98); MEAN PLATELET VOLUME 9.3 FL (7.4-10.4); MONOCYTES # (AUTO) 0.2 X10'3 (0-0.9); MONOCYTES % (AUTO) 0.7 % (2-12); NEUTROPHILS # (AUTO) 22.5 X10'3 (1.8-7.7); NEUTROPHILS % (AUTO) 98.2 % (42-75); RED BLOOD COUNT 3.66 X10'6 (4.20-5.60); RED CELL DISTRIBUTION WIDTH 13.9 % (11.5-14.5); WHITE BLOOD COUNT 22.9 X10'3 (4.5-11.0)
[2018-03-07 04:58] LABS: PLATELET COUNT 47 X10'3 (140-440)
[2018-03-07 05:23] LABS: TOTAL CELLS COUNTED 100
[2018-03-07 05:24] LABS: BURR CELLS 2+; PLATELET ESTIMATE DECREASED; TOXIC GRANULATION 2+
--- NOTE | 2018-03-07 06:30 | NUR ---
Problems reprioritized. Patient report given, questions answered & plan of care reviewed with Noreen ROB.
[2018-03-07] MEDS: famotidine/PF 10 mg/ml inj IV SCH ×2 (08:47→20:29)
[2018-03-07] MEDS: meropenem inj 1 GM in normal saline 100ml IV soln 100 ML IV SCH ×2 (08:47→20:29)
[2018-03-07] MEDS: docusate sod 100mg capsule PO SCH ×2 (09:46→20:00)
[2018-03-07] MEDS: lactobacillus rhamnosus 10,000 MMU CELLS/CAPSULE PO SCH ×2 (09:46→20:00)
--- NOTE | 2018-03-07 11:00 | NUR ---
Pt is intubated and sedated, restless when awake, opens eyes spontaneously but does not follow commands, NGT to left nare to high cont suction, flushed with 60ml NS per MD order for better drainage. NGT patent, draining dark green drainage. Titrating levophed to keep MAP > 60. Dr. Hastings arrived on unit and assessed pt, updated on pt condition, will order GI consult per Dr. Bauman recommendation. updated family on plan of care.
--- NOTE | 2018-03-07 12:20 | NUR ---
Problems reprioritized. Patient report given, questions answered & plan of care reviewed with LIANE Caraballo.
--- NOTE | 2018-03-07 12:35 | NUR ---
Patient in room CICU 2011. I have received report from LIANE Oro and had the opportunity to ask questions and assume patient care.
[2018-03-07] MEDS: FENTANYL-0.9 % NACL/PF 100 ML IV PRN (13:30)
[2018-03-07] MEDS: mineral oil/petrolatum ophthal oint EACHEYE SCH ×2 (14:46→20:29)
[2018-03-07] MEDS: fat emulsion IV 100 ML, MVI, adult No.4 with vit. K 10 ML, Trace element-5 inj. 1 ML in... IV SCH ×4 (19:09)
[2018-03-07] MEDS: insulin glargine (Lantus) pen - multi-dose SQ SCH (20:32)
[2018-03-07] MEDS: midazolam 100mg in NS 100ml 100 ML IV PRN (20:56)
[2018-03-08] VITALS (28 sets, daily range): BP systolic 80–133; BP diastolic 54–86
[2018-03-08] MEDS: hydrocortisone sod succ/PF 100mg/2ml inj. IV SCH ×3 (00:04→16:05)
[2018-03-08] MEDS: NORepinephrine 8mg/ 250ml NS 250 ML IV SCH (00:43)
[2018-03-08] MEDS: insulin regular, human vial - multi-dose SQ SCH ×5 (02:15→20:48)
[2018-03-08] MEDS: mineral oil/petrolatum ophthal oint EACHEYE SCH ×4 (02:16→20:30)
[2018-03-08] MEDS: amiodarone/D5 360MG/200ML BAG 200 ML IV SCH ×4 (02:18→17:10)
[2018-03-08] MEDS: ipratropium/albuterol 3ml nebule NEB SCH ×6 (03:14→23:08)
[2018-03-08 03:16] LABS: BASOPHILS # (AUTO) 0.1 X10'3 (0-0.2); BASOPHILS % (AUTO) 0.3 % (0-1); EOSINOPHILS % (AUTO) 0 % (0-6); HEMATOCRIT 34.2 % (35.0-45.0); HEMOGLOBIN 11.8 g/dl (12.0-16.0); LYMPHOCYTES # (AUTO) 0.2 X10'3 (1.1-4.8); LYMPHOCYTES % (AUTO) 1.1 % (21-51); MEAN CORPUSCULAR HEMOGLOBIN 33.5 PG (27.0-31.0); MEAN CORPUSCULAR HGB CONC 34.4 % (33.0-36.5); MEAN CORPUSCULAR VOLUME 97.3 FL (78-98); MEAN PLATELET VOLUME 9.4 FL (7.4-10.4); MONOCYTES # (AUTO) 0.1 X10'3 (0-0.9); MONOCYTES % (AUTO) 0.8 % (2-12); NEUTROPHILS # (AUTO) 17.9 X10'3 (1.8-7.7); NEUTROPHILS % (AUTO) 97.8 % (42-75); RED BLOOD COUNT 3.52 X10'6 (4.20-5.60); RED CELL DISTRIBUTION WIDTH 14.1 % (11.5-14.5); WHITE BLOOD COUNT 18.3 X10'3 (4.5-11.0)
[2018-03-08 03:27] LABS: ALANINE AMINOTRANSFERASE 116 U/L (12-78); ALBUMIN 1.5 G/DL (3.4-5.0); ALBUMIN/GLOBULIN RATIO 0.5 (1.1-1.5); ALKALINE PHOSPHATASE 143 IU/L (46-116); ANION GAP 11 (8-16); ASPARTATE AMINO TRANSFERASE 16 U/L (10-37); BILIRUBIN,TOTAL 0.5 MG/DL (0.1-1.0); BLOOD UREA NITROGEN 75 MG/DL (7-18); BUN/CREATININE RATIO 47.8 (6.6-38.0); CALCIUM 7.3 MG/DL (8.5-10.1); CHLORIDE 108 MMOL/L (99-107); CREATININE 1.57 MG/DL (0.40-0.90); GLUCOSE 185 MG/DL (70-104); MAGNESIUM 1.9 MG/DL (1.5-2.4); PHOSPHORUS 5.3 MG/DL (2.3-4.5); POTASSIUM 3.3 MMOL/L (3.5-5.1); PREALBUMIN 6.9 MG/DL (19-36); SODIUM 143 MMOL/L (135-145); TOTAL CARBON DIOXIDE 23.9 MMOL/L (24-32); TOTAL PROTEIN 4.4 G/DL (6.4-8.2); TRIGLYCERIDES 76 MG/DL (20-135); eGFR 32 ML/MIN
[2018-03-08 03:30] LABS: ABG BASE EXCESS -1.8 mmol/L (-2.0-3.0); ABG HCO3 26.8 mmol/L (22.0-26.0); ABG OXYGEN SATURATION 92.1 % (95-98); ABG PCO2 (T) 65.6 mmHg (32.0-45.0); ABG PH (T) 7.231 (7.350-7.450); ABG PO2 (T) 67.5 mmHg (83-108); FCOHb 1.2 % (0.5-1.5); FMetHb 0.3 % (0.3-1.12); FO2Hb 90.7 % (94-100); MINUTE VOLUME 12 L/min; PATIENT TEMPERATURE 37.3; PEEP 5 cm H2O; RESPIRATORY RATE 24 b/min; RESPIRATORY RATE (OBSERVED) 27 b/min; TIDAL VOLUME 350 mL; TOTAL HEMOGLOBIN 12.5 G/dl (12.0-16.0)
[2018-03-08 03:54] LABS: PLATELET COUNT 15 X10'3 (140-440)
[2018-03-08] MEDS: sodium bicarbonate (8.4%) inj. 150 MEQ in dextrose 5%-water 1,000 ML IV SCH ×2 (04:24→13:33)
[2018-03-08] MEDS: potassium Cl 40MEQ/250ML bag 250 ML IV PRN (04:58)
--- NOTE | 2018-03-08 06:30 | NUR ---
Patient in room CICU 2011. I have received report from LIANE Tran and had the opportunity to ask questions and assume patient care.
--- NOTE | 2018-03-08 06:42 | NUR ---
RN attempted to contact caregiver/ nephew for consent, two different phone numbers were called with multiple attempts and it was unsuccessful to reach any family member.
[2018-03-08] MEDS: famotidine/PF 10 mg/ml inj IV SCH (07:52)
[2018-03-08] MEDS: meropenem inj 1 GM in normal saline 100ml IV soln 100 ML IV SCH ×2 (07:52→20:30)
[2018-03-08] MEDS ORDERED: MIDAZolam 5mg/5ml vial ONE (08:06)
[2018-03-08] MEDS ORDERED: LIDOcaine Viscous 15ml cup ONE (08:06)
[2018-03-08] MEDS ORDERED: fentaNYL/PF 50MCG/1 ML 2ML syringe ONE (08:06)
--- NOTE | 2018-03-08 09:00 | NUR ---
Consent for platelet signed by caregiver. 10 pack platelet transfused per MD order. EGD at bedside [id number] Mathews. pt tolerated procedure well. VSS. no signs of distress. NGT to right nare replaced by Dr. Mathews, NGT to high cont suction, draining green color drainage.
[2018-03-08] MEDS: docusate sod 100mg capsule PO SCH ×2 (09:29→20:00)
[2018-03-08] MEDS: lactobacillus rhamnosus 10,000 MMU CELLS/CAPSULE PO SCH ×2 (09:29→20:00)
--- NOTE | 2018-03-08 14:36 | NUR ---
dr power arrived on unit and assessed pt, bicarb gtt and pepcid order d/c. will continue [facility] vent support.
[2018-03-08] MEDS: fat emulsion IV 100 ML, MVI, adult No.4 with vit. K 10 ML, Trace element-5 inj. 1 ML in... IV SCH ×4 (15:40)
[2018-03-08] MEDS: FENTANYL-0.9 % NACL/PF 100 ML IV PRN (17:37)
--- NOTE | 2018-03-08 18:30 | NUR ---
Patient in room CICU 2011. I have received report from LIANE Sorto and had the opportunity to ask questions and assume patient care.
--- NOTE | 2018-03-08 18:42 | NUR ---
Problems reprioritized. Patient report given, questions answered & plan of care reviewed with Liam Drummond.
[2018-03-08] MEDS: insulin glargine (Lantus) pen - multi-dose SQ SCH (20:49)
[2018-03-08] MEDS: vasopressin inj. 60 UNIT in normal saline 100ml IV soln 97 ML IV SCH (22:30)
[2018-03-09] VITALS (24 sets, daily range): BP systolic 92–152; BP diastolic 55–92
[2018-03-09] MEDS: hydrocortisone sod succ/PF 100mg/2ml inj. IV SCH ×2 (00:16→08:30)
[2018-03-09] MEDS: amiodarone/D5 360MG/200ML BAG 200 ML IV SCH ×4 (00:50→23:30)
[2018-03-09] MEDS ORDERED: ondansetron 4mg rapidly disintigrating tab PO PRN (01:05)
[2018-03-09] MEDS: mineral oil/petrolatum ophthal oint EACHEYE SCH ×4 (01:58→20:47)
[2018-03-09] MEDS: insulin regular, human vial - multi-dose SQ SCH ×4 (02:02→21:55)
[2018-03-09 02:35] LABS: BASOPHILS % (AUTO) 0 % (0-1); EOSINOPHILS % (AUTO) 0 % (0-6); HEMATOCRIT 35.9 % (35.0-45.0); HEMOGLOBIN 12.2 g/dl (12.0-16.0); LYMPHOCYTES # (AUTO) 0.3 X10'3 (1.1-4.8); LYMPHOCYTES % (AUTO) 1.5 % (21-51); MEAN CORPUSCULAR HEMOGLOBIN 32.9 PG (27.0-31.0); MEAN CORPUSCULAR HGB CONC 33.8 % (33.0-36.5); MEAN CORPUSCULAR VOLUME 97.3 FL (78-98); MEAN PLATELET VOLUME 8.9 FL (7.4-10.4); MONOCYTES # (AUTO) 0.2 X10'3 (0-0.9); MONOCYTES % (AUTO) 1.1 % (2-12); NEUTROPHILS # (AUTO) 18.4 X10'3 (1.8-7.7); NEUTROPHILS % (AUTO) 97.4 % (42-75); RED BLOOD COUNT 3.69 X10'6 (4.20-5.60); RED CELL DISTRIBUTION WIDTH 14.7 % (11.5-14.5); WHITE BLOOD COUNT 18.9 X10'3 (4.5-11.0)
[2018-03-09 02:36] LABS: ALANINE AMINOTRANSFERASE 93 U/L (12-78); ALBUMIN 1.6 G/DL (3.4-5.0); ALBUMIN/GLOBULIN RATIO 0.5 (1.1-1.5); ALKALINE PHOSPHATASE 140 IU/L (46-116); ANION GAP 9 (8-16); ASPARTATE AMINO TRANSFERASE 16 U/L (10-37); BILIRUBIN,TOTAL 0.4 MG/DL (0.1-1.0); BLOOD UREA NITROGEN 93 MG/DL (7-18); BUN/CREATININE RATIO 62.4 (6.6-38.0); CALCIUM 8.2 MG/DL (8.5-10.1); CHLORIDE 107 MMOL/L (99-107); CREATININE 1.49 MG/DL (0.40-0.90); GLUCOSE 160 MG/DL (70-104); PHOSPHORUS 6.6 MG/DL (2.3-4.5); POTASSIUM 4.4 MMOL/L (3.5-5.1); SODIUM 142 MMOL/L (135-145); TOTAL CARBON DIOXIDE 26.2 MMOL/L (24-32); TOTAL PROTEIN 4.7 G/DL (6.4-8.2); eGFR 34 ML/MIN
[2018-03-09 02:46] LABS: PLATELET COUNT 34 X10'3 (140-440)
[2018-03-09] MEDS: ipratropium/albuterol 3ml nebule NEB SCH ×6 (03:21→23:19)
[2018-03-09 03:30] LABS: ABG BASE EXCESS -5.1 mmol/L (-2.0-3.0); ABG HCO3 22.6 mmol/L (22.0-26.0); ABG PCO2 (T) 52.6 mmHg (32.0-45.0); ABG PH (T) 7.249 (7.350-7.450); ABG PO2 (T) 77.8 mmHg (83-108); FCOHb 0.8 % (0.5-1.5); FMetHb 0.3 % (0.3-1.12); MINUTE VOLUME 10 L/min; PATIENT TEMPERATURE 36.7; PEEP 5 cm H2O; RESPIRATORY RATE 24 b/min; RESPIRATORY RATE (OBSERVED) 25 b/min; TIDAL VOLUME 350 mL; TOTAL HEMOGLOBIN 12.7 G/dl (12.0-16.0)
[2018-03-09] MEDS: midazolam 100mg in NS 100ml 100 ML IV PRN (04:35)
--- NOTE | 2018-03-09 06:19 | NUR ---
Problems reprioritized. Patient report given, questions answered & plan of care reviewed with LIANE Sesay.
[2018-03-09] MEDS: docusate sodium 100mg/10ml UD cup PO SCH ×2 (08:00→20:00)
[2018-03-09] MEDS: lactobacillus rhamnosus 10,000 MMU CELLS/CAPSULE PO SCH ×2 (08:00→20:00)
[2018-03-09] MEDS: meropenem inj 1 GM in normal saline 100ml IV soln 100 ML IV SCH ×2 (08:30→20:26)
[2018-03-09] MEDS ORDERED: pantoprazole 40 MG vial IV SCH (09:20)
[2018-03-09] MEDS: dexmedetomidin/NS 400mcg/100ml 100 ML IV SCH (13:05)
[2018-03-09] MEDS: fat emulsion IV 100 ML, MVI, adult No.4 with vit. K 10 ML, Trace element-5 inj. 1 ML in... IV SCH ×4 (13:40)
--- NOTE | 2018-03-09 14:24 | NUR ---
Reassessment 03/09: TPN at goal rate. Patient still intubated. Per MD note and stated during rounds EGD revealed tortuous duodenum and therefore indicates that low rate tube feedings are unable to begin at this time. No obstruction was found during EGD. Patient would benefit, if tolerated, from low rate tube feeding to preserve gastric integrity. Rec; 1. TPN via central line using Clinimix E 5/15 2L bag w/ 100ml 20% intralipids at 100ml/hr goal; to provide 2400ml fluid, 114g AA, 343g DEX(3.7mg/kg/min), and 1396 total non-protein kcals. 2. prealbumin Q /, daily wts 3. Consider trickle tube feeding as medically indicated to preserve GI integrity Addendum: 03/09/18 at [address] Amended: Links added.
[2018-03-09] MEDS: FENTANYL-0.9 % NACL/PF 100 ML IV PRN (18:23)
[2018-03-09] MEDS: dextrose 50%-water 50ml dispensing syringe IV PRN (20:22)
[2018-03-09] MEDS: famotidine/PF 10 mg/ml inj IV SCH (20:47)
[2018-03-09] MEDS: insulin glargine (Lantus) pen - multi-dose SQ SCH (21:56)
[2018-03-10] VITALS (24 sets, daily range): BP systolic 89–157; BP diastolic 50–105
[2018-03-10] MEDS: amiodarone/D5 360MG/200ML BAG 200 ML IV SCH ×5 (00:02→23:23)
[2018-03-10] MEDS: FENTANYL-0.9 % NACL/PF 100 ML IV PRN ×2 (02:26→17:22)
[2018-03-10] MEDS: mineral oil/petrolatum ophthal oint EACHEYE SCH ×4 (02:26→21:00)
[2018-03-10] MEDS: insulin regular, human vial - multi-dose SQ SCH ×4 (02:49→21:12)
[2018-03-10 02:59] LABS: ALANINE AMINOTRANSFERASE 71 U/L (12-78); ALBUMIN 1.6 G/DL (3.4-5.0); ALBUMIN/GLOBULIN RATIO 0.5 (1.1-1.5); ALKALINE PHOSPHATASE 143 IU/L (46-116); ANION GAP 11 (8-16); ASPARTATE AMINO TRANSFERASE 18 U/L (10-37); BILIRUBIN,TOTAL 0.8 MG/DL (0.1-1.0); BLOOD UREA NITROGEN 97 MG/DL (7-18); BUN/CREATININE RATIO 88.2 (6.6-38.0); CALCIUM 8.5 MG/DL (8.5-10.1); CHLORIDE 107 MMOL/L (99-107); GLUCOSE 94 MG/DL (70-104); MAGNESIUM 1.9 MG/DL (1.5-2.4); PHOSPHORUS 5.1 MG/DL (2.3-4.5); POTASSIUM 4.2 MMOL/L (3.5-5.1); SODIUM 142 MMOL/L (135-145); TOTAL CARBON DIOXIDE 23.9 MMOL/L (24-32); TOTAL PROTEIN 4.7 G/DL (6.4-8.2); eGFR 49 ML/MIN
[2018-03-10 03:09] LABS: BASOPHILS % (AUTO) 0 % (0-1); EOSINOPHILS % (AUTO) 0.1 % (0-6); HEMOGLOBIN 13.4 g/dl (12.0-16.0); LYMPHOCYTES # (AUTO) 0.3 X10'3 (1.1-4.8); MEAN CORPUSCULAR HEMOGLOBIN 32.8 PG (27.0-31.0); MEAN CORPUSCULAR HGB CONC 34.4 % (33.0-36.5); MEAN CORPUSCULAR VOLUME 95.4 FL (78-98); MEAN PLATELET VOLUME 9.3 FL (7.4-10.4); MONOCYTES % (AUTO) 0.2 % (2-12); NEUTROPHILS # (AUTO) 17.1 X10'3 (1.8-7.7); NEUTROPHILS % (AUTO) 97.7 % (42-75); RED BLOOD COUNT 4.09 X10'6 (4.20-5.60); RED CELL DISTRIBUTION WIDTH 13.7 % (11.5-14.5); WHITE BLOOD COUNT 17.4 X10'3 (4.5-11.0)
[2018-03-10 03:12] LABS: PLATELET COUNT 36 X10'3 (140-440)
[2018-03-10] MEDS: ipratropium/albuterol 3ml nebule NEB SCH ×6 (03:46→22:56)
[2018-03-10 04:46] LABS: ABG BASE EXCESS 0.3 mmol/L (-2.0-3.0); ABG HCO3 25.4 mmol/L (22.0-26.0); ABG OXYGEN SATURATION 94.3 % (95-98); ABG PCO2 (T) 43.9 mmHg (32.0-45.0); ABG PH (T) 7.382 (7.350-7.450); ABG PO2 (T) 76.4 mmHg (83-108); FCOHb 0.8 % (0.5-1.5); FO2Hb 93.5 % (94-100); PATIENT TEMPERATURE 37.6; PEEP 5 cm H2O; RESPIRATORY RATE 24 b/min; TIDAL VOLUME 350 mL; TOTAL HEMOGLOBIN 13.8 G/dl (12.0-16.0)
--- NOTE | 2018-03-10 06:51 | NUR ---
Problems reprioritized. Patient report given, questions answered & plan of care reviewed with LIANE Glynn.
--- NOTE | 2018-03-10 06:52 | NUR ---
Patient in room CICU 2012. I have received report from LIANE Drummond and had the opportunity to ask questions and assume patient care.
[2018-03-10] MEDS: docusate sodium 100mg/10ml UD cup PO SCH ×2 (08:00→20:00)
[2018-03-10] MEDS: lactobacillus rhamnosus 10,000 MMU CELLS/CAPSULE PO SCH ×2 (08:00→20:00)
[2018-03-10] MEDS: famotidine/PF 10 mg/ml inj IV SCH ×2 (08:58→21:00)
[2018-03-10] MEDS: meropenem inj 1 GM in normal saline 100ml IV soln 100 ML IV SCH ×2 (08:58→20:55)
[2018-03-10] MEDS: NORepinephrine 8mg/ 250ml NS 250 ML IV SCH ×3 (13:00→20:38)
[2018-03-10] MEDS: dexmedetomidin/NS 400mcg/100ml 100 ML IV SCH (14:00)
--- NOTE | 2018-03-10 14:00 | NUR ---
Pt suddenly became tachycardic with HR in 150s. BP 60-70/40s. Work of breathing increased. Dr. Tong at bedside and charge nurse, Any notified. Per Dr. Tong, pt is overworked and body is unable to compensate any longer. Per Dr. Tong, will increase fentanyl gtt up to 250mcg to help decrease WOB. Can also restart levo if needed Per Dr. Tong. BP not sustaining with high HR and increased fent doses. Levo restarted at 10 mcg, fent at 150mcg. Pt's VS decreased as well as pt's work of breathing. BP starting to drop again, will increase levo to 12mcg. CXR ordered per Dr. Tong but result was unchanged from morning cxr. Will continue to monitor
[2018-03-10] MEDS ORDERED: hydrocortisone sod succ/PF 100mg/2ml inj. IV ONE (14:45)
[2018-03-10] MEDS ORDERED: vasopressin inj. 60 UNIT in normal saline 100ml IV soln 97 ML IV SCH (14:45)
--- NOTE | 2018-03-10 14:49 | NUR ---
attempted to call kiki Antunez to discuss pt's condition but got no answer and a busy tone. will try again later
--- NOTE | 2018-03-10 16:17 | NUR ---
2 sets of blood cultures, urine culture, and sputum culture sent down to lab. Pt holding steady on 20mcg of levo. Hydrocortisone administered. Will wait to start vaso until needed
[2018-03-10] MEDS: fat emulsion IV 100 ML, MVI, adult No.4 with vit. K 10 ML, Trace element-5 inj. 1 ML in... IV SCH ×4 (16:49)
[2018-03-10] MEDS: hydrocortisone sod succ/PF 100mg/2ml inj. IV SCH (21:00)
[2018-03-10] MEDS: insulin glargine (Lantus) pen - multi-dose SQ SCH (21:11)
[2018-03-10] MEDS: vasopressin inj. 60 UNIT in normal saline 100ml IV soln 97 ML IV SCH (22:30)
[2018-03-11] VITALS (24 sets, daily range): BP systolic 92–154; BP diastolic 48–76
[2018-03-11] MEDS: FENTANYL-0.9 % NACL/PF 100 ML IV PRN ×4 (00:23→18:35)
[2018-03-11 02:11] LABS: ABG BASE EXCESS -2.5 mmol/L (-2.0-3.0); ABG HCO3 24.8 mmol/L (22.0-26.0); ABG OXYGEN SATURATION 94.7 % (95-98); ABG PCO2 (T) 54.2 mmHg (32.0-45.0); ABG PH (T) 7.278 (7.350-7.450); FCOHb 1.1 % (0.5-1.5); FO2Hb 93.7 % (94-100); PATIENT TEMPERATURE 36.9; PEEP 5 cm H2O; RESPIRATORY RATE 24 b/min; TIDAL VOLUME 350 mL; TOTAL HEMOGLOBIN 12.1 G/dl (12.0-16.0)
[2018-03-11] MEDS: ipratropium/albuterol 3ml nebule NEB SCH ×6 (02:33→23:15)
[2018-03-11] MEDS: mineral oil/petrolatum ophthal oint EACHEYE SCH ×4 (02:37→19:34)
[2018-03-11] MEDS: hydrocortisone sod succ/PF 100mg/2ml inj. IV SCH ×4 (02:37→19:34)
[2018-03-11] MEDS: insulin regular, human vial - multi-dose SQ SCH ×4 (02:40→19:41)
[2018-03-11] MEDS: dexmedetomidin/NS 400mcg/100ml 100 ML IV SCH (02:44)
[2018-03-11 03:20] LABS: BASOPHILS % (AUTO) 0 % (0-1); EOSINOPHILS % (AUTO) 0 % (0-6); HEMATOCRIT 34.6 % (35.0-45.0); HEMOGLOBIN 11.5 g/dl (12.0-16.0); LYMPHOCYTES # (AUTO) 0.3 X10'3 (1.1-4.8); LYMPHOCYTES % (AUTO) 1.4 % (21-51); MEAN CORPUSCULAR HEMOGLOBIN 32.2 PG (27.0-31.0); MEAN CORPUSCULAR HGB CONC 33.4 % (33.0-36.5); MEAN CORPUSCULAR VOLUME 96.5 FL (78-98); MEAN PLATELET VOLUME 10.4 FL (7.4-10.4); MONOCYTES # (AUTO) 0.1 X10'3 (0-0.9); MONOCYTES % (AUTO) 0.4 % (2-12); NEUTROPHILS # (AUTO) 20.4 X10'3 (1.8-7.7); NEUTROPHILS % (AUTO) 98.2 % (42-75); RED BLOOD COUNT 3.58 X10'6 (4.20-5.60); RED CELL DISTRIBUTION WIDTH 13.8 % (11.5-14.5); WHITE BLOOD COUNT 20.8 X10'3 (4.5-11.0)
[2018-03-11 03:25] LABS: PLATELET COUNT 41 X10'3 (140-440)
[2018-03-11 03:30] LABS: ALANINE AMINOTRANSFERASE 46 U/L (12-78); ALBUMIN 1.3 G/DL (3.4-5.0); ALBUMIN/GLOBULIN RATIO 0.4 (1.1-1.5); ALKALINE PHOSPHATASE 128 IU/L (46-116); ANION GAP 9 (8-16); ASPARTATE AMINO TRANSFERASE 15 U/L (10-37); BILIRUBIN,TOTAL 1.2 MG/DL (0.1-1.0); BLOOD UREA NITROGEN 92 MG/DL (7-18); BUN/CREATININE RATIO 101.1 (6.6-38.0); CHLORIDE 110 MMOL/L (99-107); CREATININE 0.91 MG/DL (0.40-0.90); GLUCOSE 214 MG/DL (70-104); MAGNESIUM 1.9 MG/DL (1.5-2.4); PHOSPHORUS 5.8 MG/DL (2.3-4.5); SODIUM 144 MMOL/L (135-145); TOTAL CARBON DIOXIDE 25.1 MMOL/L (24-32); TOTAL PROTEIN 4.4 G/DL (6.4-8.2); eGFR 60 ML/MIN
[2018-03-11] MEDS ORDERED: vancomycin/NS 1 GM ADD-VANTAGE 250 ML IV STA (03:31)
[2018-03-11] MEDS: amiodarone/D5 360MG/200ML BAG 200 ML IV SCH ×4 (05:50→22:43)
--- NOTE | 2018-03-11 06:15 | NUR ---
Patient in room CICU 2011. I have received report from LIANE Ge and had the opportunity to ask questions and assume patient care.
[2018-03-11 06:16] LABS: UREA NITROGEN 24HR,URINE 27.6 GM/24HR (7-20)
--- NOTE | 2018-03-11 06:37 | NUR ---
Problems reprioritized. Patient report given, questions answered & plan of care reviewed with Sai RN.
[2018-03-11] MEDS: NORepinephrine 8mg/ 250ml NS 250 ML IV SCH ×2 (07:18→17:35)
[2018-03-11] MEDS: docusate sodium 100mg/10ml UD cup PO SCH ×3 (07:19→19:51)
[2018-03-11] MEDS: famotidine/PF 10 mg/ml inj IV SCH ×2 (07:19→19:38)
[2018-03-11] MEDS: meropenem inj 1 GM in normal saline 100ml IV soln 100 ML IV SCH ×2 (07:19→19:34)
[2018-03-11] MEDS: lactobacillus rhamnosus 10,000 MMU CELLS/CAPSULE PO SCH ×3 (07:19→19:51)
[2018-03-11] MEDS ORDERED: furosemide 40mg/4ml inj IV ONE (09:35)
[2018-03-11] MEDS: fat emulsion IV 100 ML, MVI, adult No.4 with vit. K 10 ML, Trace element-5 inj. 1 ML in... IV SCH ×4 (13:59)
[2018-03-11] MEDS: vancomycin/NS 1 GM ADD-VANTAGE 250 ML IV SCH (16:22)
--- NOTE | 2018-03-11 18:08 | NUR ---
Problems reprioritized. Patient report given, questions answered & plan of care reviewed with LIANE Ge.
[2018-03-11] MEDS: insulin glargine (Lantus) pen - multi-dose SQ SCH (19:41)
[2018-03-12] VITALS (24 sets, daily range): BP systolic 86–160; BP diastolic 48–88
[2018-03-12] MEDS: FENTANYL-0.9 % NACL/PF 100 ML IV PRN ×5 (00:03→23:44)
[2018-03-12 02:16] LABS: ABG BASE EXCESS -0.9 mmol/L (-2.0-3.0); ABG HCO3 27.8 mmol/L (22.0-26.0); ABG OXYGEN SATURATION 94.9 % (95-98); ABG PCO2 (T) 65.2 mmHg (32.0-45.0); ABG PH (T) 7.246 (7.350-7.450); ABG PO2 (T) 85.7 mmHg (83-108); FCOHb 0.7 % (0.5-1.5); FMetHb 0.3 % (0.3-1.12); PATIENT TEMPERATURE 36.7; PEEP 5 cm H2O; RESPIRATORY RATE 24 b/min; TIDAL VOLUME 350 mL; TOTAL HEMOGLOBIN 12.6 G/dl (12.0-16.0)
[2018-03-12] MEDS: mineral oil/petrolatum ophthal oint EACHEYE SCH ×4 (02:28→20:29)
[2018-03-12] MEDS: fat emulsion IV 100 ML, MVI, adult No.4 with vit. K 10 ML, Trace element-5 inj. 1 ML in... IV SCH ×8 (02:28→23:43)
[2018-03-12] MEDS: hydrocortisone sod succ/PF 100mg/2ml inj. IV SCH ×4 (02:28→20:28)
[2018-03-12] MEDS: insulin regular, human vial - multi-dose SQ SCH ×2 (02:35→20:35)
[2018-03-12 03:11] LABS: BASOPHILS % (AUTO) 0 % (0-1); EOSINOPHILS % (AUTO) 0 % (0-6); HEMOGLOBIN 12.1 g/dl (12.0-16.0); LYMPHOCYTES # (AUTO) 0.2 X10'3 (1.1-4.8); MEAN CORPUSCULAR HEMOGLOBIN 32.8 PG (27.0-31.0); MEAN CORPUSCULAR HGB CONC 33.8 % (33.0-36.5); MEAN PLATELET VOLUME 10.6 FL (7.4-10.4); MONOCYTES # (AUTO) 0.1 X10'3 (0-0.9); MONOCYTES % (AUTO) 0.5 % (2-12); NEUTROPHILS # (AUTO) 23.3 X10'3 (1.8-7.7); NEUTROPHILS % (AUTO) 98.5 % (42-75); PLATELET COUNT 69 X10'3 (140-440); RED BLOOD COUNT 3.71 X10'6 (4.20-5.60); WHITE BLOOD COUNT 23.6 X10'3 (4.5-11.0)
[2018-03-12 04:02] LABS: ALANINE AMINOTRANSFERASE 40 U/L (12-78); ALBUMIN 1.4 G/DL (3.4-5.0); ALBUMIN/GLOBULIN RATIO 0.4 (1.1-1.5); ALKALINE PHOSPHATASE 136 IU/L (46-116); ANION GAP 9 (8-16); ASPARTATE AMINO TRANSFERASE 17 U/L (10-37); BILIRUBIN,TOTAL 1.3 MG/DL (0.1-1.0); BLOOD UREA NITROGEN 94 MG/DL (7-18); BUN/CREATININE RATIO 102.2 (6.6-38.0); CALCIUM 8.5 MG/DL (8.5-10.1); CHLORIDE 110 MMOL/L (99-107); CREATININE 0.92 MG/DL (0.40-0.90); GLUCOSE 87 MG/DL (70-104); MAGNESIUM 1.9 MG/DL (1.5-2.4); PHOSPHORUS 6.4 MG/DL (2.3-4.5); PREALBUMIN 12.5 MG/DL (19-36); SODIUM 145 MMOL/L (135-145); TOTAL CARBON DIOXIDE 25.6 MMOL/L (24-32); TOTAL PROTEIN 4.9 G/DL (6.4-8.2); TRIGLYCERIDES 66 MG/DL (20-135); eGFR 60 ML/MIN
[2018-03-12] MEDS: NORepinephrine 8mg/ 250ml NS 250 ML IV SCH (04:36)
[2018-03-12] MEDS: vancomycin/NS 1 GM ADD-VANTAGE 250 ML IV SCH ×2 (04:43→15:59)
--- NOTE | 2018-03-12 06:29 | NUR ---
Problems reprioritized. Patient report given, questions answered & plan of care reviewed with Sai RN.
--- NOTE | 2018-03-12 06:30 | NUR ---
Patient in room [facility] 2011. I have received report from and had the opportunity to ask questions and assume patient care. Addendum: 03/12/18 at 0654 by Sai Noe RN Received report from LIANE Ge.
[2018-03-12] MEDS: amiodarone/D5 360MG/200ML BAG 200 ML IV SCH ×4 (06:44→21:42)
[2018-03-12] MEDS: docusate sodium 100mg/10ml UD cup PO SCH ×2 (07:18→20:00)
[2018-03-12] MEDS: meropenem inj 1 GM in normal saline 100ml IV soln 100 ML IV SCH (07:18)
[2018-03-12] MEDS: famotidine/PF 10 mg/ml inj IV SCH ×2 (07:18→20:28)
[2018-03-12] MEDS: lactobacillus rhamnosus 10,000 MMU CELLS/CAPSULE PO SCH ×2 (07:19→20:00)
[2018-03-12] MEDS: ipratropium/albuterol 3ml nebule NEB SCH ×5 (07:31→23:06)
[2018-03-12] MEDS: micafungin inj 100 MG in normal saline 100ml IV soln 100 ML IV SCH (10:30)
[2018-03-12] MEDS: meropenem inj 500 MG in normal saline 100ml IV soln 100 ML IV SCH ×2 (13:12→20:29)
[2018-03-12] MEDS: dexmedetomidin/NS 400mcg/100ml 100 ML IV SCH (13:15)
[2018-03-12] MEDS ORDERED: VANCOMYCIN LEVEL IV ONE (15:30)
--- NOTE | 2018-03-12 18:00 | NUR ---
Problems reprioritized. Patient report given, questions answered & plan of care reviewed with LIANE Ge.
[2018-03-12] MEDS: insulin glargine (Lantus) pen - multi-dose SQ SCH (20:37)
[2018-03-12] MEDS: vasopressin inj. 60 UNIT in normal saline 100ml IV soln 97 ML IV SCH (22:30)
[2018-03-13] VITALS (24 sets, daily range): BP systolic 89–152; BP diastolic 47–81
[2018-03-13 02:20] LABS: ABG BASE EXCESS 0.7 mmol/L (-2.0-3.0); ABG HCO3 27.7 mmol/L (22.0-26.0); ABG PCO2 (T) 54.8 mmHg (32.0-45.0); ABG PO2 (T) 82.2 mmHg (83-108); FCOHb 0.5 % (0.5-1.5); FMetHb 0.3 % (0.3-1.12); FO2Hb 94.2 % (94-100); PATIENT TEMPERATURE 36.8; PEEP 8 cm H2O; RESPIRATORY RATE 24 b/min; TIDAL VOLUME 350 mL
[2018-03-13] MEDS: mineral oil/petrolatum ophthal oint EACHEYE SCH ×4 (02:24→21:18)
[2018-03-13] MEDS: hydrocortisone sod succ/PF 100mg/2ml inj. IV SCH ×4 (02:24→21:18)
[2018-03-13] MEDS: insulin regular, human vial - multi-dose SQ SCH ×4 (02:25→21:22)
[2018-03-13] MEDS: meropenem inj 500 MG in normal saline 100ml IV soln 100 ML IV SCH ×4 (02:35→21:18)
[2018-03-13] MEDS: ipratropium/albuterol 3ml nebule NEB SCH ×6 (02:36→23:38)
[2018-03-13 02:38] LABS: BASOPHILS % (AUTO) 0 % (0-1); EOSINOPHILS % (AUTO) 0 % (0-6); HEMATOCRIT 34.9 % (35.0-45.0); HEMOGLOBIN 11.1 g/dl (12.0-16.0); LYMPHOCYTES # (AUTO) 0.2 X10'3 (1.1-4.8); MEAN CORPUSCULAR HEMOGLOBIN 30.7 PG (27.0-31.0); MEAN CORPUSCULAR HGB CONC 31.8 % (33.0-36.5); MEAN CORPUSCULAR VOLUME 96.6 FL (78-98); MEAN PLATELET VOLUME 10.2 FL (7.4-10.4); MONOCYTES # (AUTO) 0.2 X10'3 (0-0.9); MONOCYTES % (AUTO) 1.2 % (2-12); NEUTROPHILS # (AUTO) 15.6 X10'3 (1.8-7.7); NEUTROPHILS % (AUTO) 97.8 % (42-75); PLATELET COUNT 101 X10'3 (140-440); RED BLOOD COUNT 3.61 X10'6 (4.20-5.60); RED CELL DISTRIBUTION WIDTH 14.1 % (11.5-14.5)
[2018-03-13 02:55] LABS: ALANINE AMINOTRANSFERASE 41 U/L (12-78); ALBUMIN 1.3 G/DL (3.4-5.0); ALBUMIN/GLOBULIN RATIO 0.4 (1.1-1.5); ALKALINE PHOSPHATASE 118 IU/L (46-116); ANION GAP 8 (8-16); ASPARTATE AMINO TRANSFERASE 20 U/L (10-37); BILIRUBIN,TOTAL 1.6 MG/DL (0.1-1.0); BLOOD UREA NITROGEN 90 MG/DL (7-18); CALCIUM 8.5 MG/DL (8.5-10.1); CHLORIDE 111 MMOL/L (99-107); GLUCOSE 211 MG/DL (70-104); PHOSPHORUS 5.7 MG/DL (2.3-4.5); POTASSIUM 5.2 MMOL/L (3.5-5.1); SODIUM 145 MMOL/L (135-145); TOTAL CARBON DIOXIDE 25.7 MMOL/L (24-32); TOTAL PROTEIN 4.7 G/DL (6.4-8.2); eGFR 61 ML/MIN
[2018-03-13] MEDS: vancomycin/NS 1 GM ADD-VANTAGE 250 ML IV SCH ×2 (04:03→16:15)
[2018-03-13] MEDS: dexmedetomidin/NS 400mcg/100ml 100 ML IV SCH (05:30)
[2018-03-13] MEDS: FENTANYL-0.9 % NACL/PF 100 ML IV PRN ×3 (05:50→18:23)
--- NOTE | 2018-03-13 06:15 | NUR ---
Patient in room CICU 2011. I have received report from LIANE Ge and had the opportunity to ask questions and assume patient care.
--- NOTE | 2018-03-13 06:24 | NUR ---
Problems reprioritized. Patient report given, questions answered & plan of care reviewed with Sai RN.
[2018-03-13] MEDS: amiodarone/D5 360MG/200ML BAG 200 ML IV SCH ×2 (06:33→09:28)
[2018-03-13] MEDS: docusate sodium 100mg/10ml UD cup PO SCH ×2 (06:58→20:00)
[2018-03-13] MEDS: lactobacillus rhamnosus 10,000 MMU CELLS/CAPSULE PO SCH ×2 (06:58→20:00)
[2018-03-13] MEDS: famotidine/PF 10 mg/ml inj IV SCH ×2 (07:20→21:18)
[2018-03-13] MEDS: micafungin inj 100 MG in normal saline 100ml IV soln 100 ML IV SCH (08:35)
--- NOTE | 2018-03-13 13:32 | NUR ---
Reassessment 03/13: Patient continues on TPN at goal rate. Noted that K and Phos are elevated and RN discussed these during rounds, no change to electrolyte content in TPN yet. Discussed with that patient may benefit from J-tube if unable to tolerate PO when extubated to feed the gut. She had two BMs yesterday. Will continue to follow. Rec; 1. TPN via central line using Clinimix E / 2L bag w/ 100ml 20% intralipids at 100ml/hr goal; to provide 2400ml fluid, 114g AA, 343g DEX(3.7mg/kg/min), and 1396 total non-protein kcals. 2. prealbumin Q /, daily wts 3. Consider trickle tube feeding as medically indicated to preserve GI integrity, if unable to provide trickle tube feeding into stomach and if unable to tolerate PO when extubated d/t tortuous duodenum patient may benefit from J-tube, d/w . Addendum: 03/13/18 at [address] Amended: Links added.
--- NOTE | 2018-03-13 18:20 | NUR ---
Patient in room CICU 2011. I have received report from Sai ROB and had the opportunity to ask questions and assume patient care. Pt on vent at 45% fio2 with spo2 of 94%. Precedex gtt, TPN, and fentanyl gtt infusing via central line, see IV flow sheet for titration information. See interventions for further information. All monitoring alarms audible. Will continue to monitor.
--- NOTE | 2018-03-13 18:21 | NUR ---
Problems reprioritized. Patient report given, questions answered & plan of care reviewed with LIANE Ge.
[2018-03-13] MEDS: insulin glargine (Lantus) pen - multi-dose SQ SCH (21:22)
[2018-03-13] MEDS: fat emulsion IV 100 ML, MVI, adult No.4 with vit. K 10 ML, Trace element-5 inj. 1 ML in... IV SCH ×4 (23:33)
--- NOTE | 2018-03-13 23:35 | NUR ---
At 2329 pt went from sinus rhythm to afib with rate between 104-134bpm, SBP 154. Called Ileana Mcclendon NP and notified her, at this time no new orders are received.
[2018-03-14] VITALS (31 sets, daily range): BP systolic 92–162; BP diastolic 44–96
[2018-03-14] MEDS: FENTANYL-0.9 % NACL/PF 100 ML IV PRN ×3 (00:59→18:03)
[2018-03-14] MEDS: hydrocortisone sod succ/PF 100mg/2ml inj. IV SCH ×4 (02:15→20:49)
[2018-03-14] MEDS: meropenem inj 500 MG in normal saline 100ml IV soln 100 ML IV SCH ×4 (02:15→20:48)
[2018-03-14] MEDS: insulin regular, human vial - multi-dose SQ SCH ×3 (02:20→21:04)
[2018-03-14] MEDS: mineral oil/petrolatum ophthal oint EACHEYE SCH ×4 (02:23→20:48)
[2018-03-14 02:58] LABS: BASOPHILS % (AUTO) 0 % (0-1); EOSINOPHILS # (AUTO) 0.4 X10'3 (0-0.9); EOSINOPHILS % (AUTO) 2.5 % (0-6); HEMOGLOBIN 10.8 g/dl (12.0-16.0); LYMPHOCYTES # (AUTO) 0.2 X10'3 (1.1-4.8); MEAN CORPUSCULAR HEMOGLOBIN 32.4 PG (27.0-31.0); MEAN CORPUSCULAR HGB CONC 33.9 % (33.0-36.5); MEAN CORPUSCULAR VOLUME 95.7 FL (78-98); MONOCYTES # (AUTO) 0.6 X10'3 (0-0.9); MONOCYTES % (AUTO) 3.4 % (2-12); NEUTROPHILS # (AUTO) 16.3 X10'3 (1.8-7.7); NEUTROPHILS % (AUTO) 93.1 % (42-75); PLATELET COUNT 142 X10'3 (140-440); RED BLOOD COUNT 3.34 X10'6 (4.20-5.60); RED CELL DISTRIBUTION WIDTH 14.6 % (11.5-14.5); WHITE BLOOD COUNT 17.5 X10'3 (4.5-11.0)
[2018-03-14] MEDS: ipratropium/albuterol 3ml nebule NEB SCH ×6 (03:15→23:06)
[2018-03-14 03:18] LABS: PARTIAL THROMBOPLASTIN TIME 36 SECONDS (22-32); PROTHROMBIN TIME 10.2 SECONDS (9.0-12.0)
[2018-03-14 03:22] LABS: ALANINE AMINOTRANSFERASE 50 U/L (12-78); ALBUMIN 1.2 G/DL (3.4-5.0); ALBUMIN/GLOBULIN RATIO 0.4 (1.1-1.5); ALKALINE PHOSPHATASE 115 IU/L (46-116); ANION GAP 6 (8-16); ASPARTATE AMINO TRANSFERASE 40 U/L (10-37); BILIRUBIN,TOTAL 2.7 MG/DL (0.1-1.0); BLOOD UREA NITROGEN 87 MG/DL (7-18); BUN/CREATININE RATIO 104.8 (6.6-38.0); CHLORIDE 113 MMOL/L (99-107); CREATININE 0.83 MG/DL (0.40-0.90); GLUCOSE 137 MG/DL (70-104); PHOSPHORUS 5.1 MG/DL (2.3-4.5); POTASSIUM 5.2 MMOL/L (3.5-5.1); SODIUM 146 MMOL/L (135-145); TOTAL CARBON DIOXIDE 27.4 MMOL/L (24-32); TOTAL PROTEIN 4.5 G/DL (6.4-8.2); eGFR 67 ML/MIN
[2018-03-14] MEDS: vancomycin/NS 1 GM ADD-VANTAGE 250 ML IV SCH (04:11)
--- NOTE | 2018-03-14 05:14 | NUR ---
pt continues in afib with rate between 98-120 bpm.
--- NOTE | 2018-03-14 06:30 | NUR ---
Problems reprioritized. Patient report given, questions answered & plan of care reviewed with Lázaro RN.
[2018-03-14] MEDS: lactobacillus rhamnosus 10,000 MMU CELLS/CAPSULE PO SCH ×2 (08:00→20:00)
[2018-03-14] MEDS: docusate sodium 100mg/10ml UD cup PO SCH ×2 (08:00→20:00)
[2018-03-14] MEDS: micafungin inj 100 MG in normal saline 100ml IV soln 100 ML IV SCH (08:16)
[2018-03-14] MEDS: famotidine/PF 10 mg/ml inj IV SCH ×2 (08:16→20:49)
[2018-03-14] MEDS: NORepinephrine 8mg/ 250ml NS 250 ML IV SCH (13:00)
--- NOTE | 2018-03-14 14:37 | NUR ---
Reassessment: Pt remains on E-TPN at goal and tolerating. TAZ d/w for non-E given elevated Phos/K; MD agrees for pharmacy to dose and decide. Pt plans to OR today for ex lap and intestinal bypass given redundant duodenum and superior mesenteric artery syndrome per MD note. Pt had small BM 03/12. Will monitor for OR results; if decompression of duodenum/stomach resolves and full GI tract is functional pt would benefit from trickle feeds to preserve gut integrity. Will continue to monitor. Rec; 1. TPN via central line using Clinimix E /15 2L bag w/ 100ml 20% intralipids at 100ml/hr goal; to provide 2400ml fluid, 114g AA, 343g DEX(3.7mg/kg/min), and 1396 total non-protein kcals. 2. prealbumin Q /, daily wts 3. Consider non-E TPN given current labs per MD approval 4. Consider trickle tube feeding as medically indicated to preserve GI integrity, if unable to provide trickle tube feeding into stomach and if unable to tolerate PO when extubated d/t tortuous duodenum patient may benefit from J-tube, d/w . Addendum: 03/14/18 at [address] Amended: Links added.
[2018-03-14] MEDS ORDERED: phenylephrine 10mg/ml inj. ONE (14:45)
[2018-03-14] MEDS ORDERED: dexmedetomidine 200mcg/2ml inj. IV ONE (14:45)
[2018-03-14] MEDS ORDERED: sevoflurane 250ml liquid IH ONE (14:45)
--- NOTE | 2018-03-14 14:50 | NUR ---
Pt to OR on monitor with manager transport.
[2018-03-14] MEDS ORDERED: rocuronium 10mg/ml inj IV ONE (14:58)
[2018-03-14] MEDS ORDERED: NORepinephrine 1 mg/ml inj IV ONE (15:10)
--- NOTE | 2018-03-14 17:04 | NUR ---
pt back from OR. on 12 mcg of levo. RN able to titrate down to 2mcg. RN will continue to monitor. Per Report PT EBL 300ml and may need blood. Will draw h&h as well as BMP. Addendum: 03/14/18 at 1750 by Stephen Torres RN Amended: Links added.
[2018-03-14 18:22] LABS: BASOPHILS % (AUTO) 0 % (0-1); EOSINOPHILS # (AUTO) 0.3 X10'3 (0-0.9); EOSINOPHILS % (AUTO) 1.1 % (0-6); HEMATOCRIT 34.6 % (35.0-45.0); HEMOGLOBIN 11.5 g/dl (12.0-16.0); LYMPHOCYTES # (AUTO) 0.2 X10'3 (1.1-4.8); LYMPHOCYTES % (AUTO) 0.9 % (21-51); MEAN CORPUSCULAR HEMOGLOBIN 31.8 PG (27.0-31.0); MEAN CORPUSCULAR HGB CONC 33.1 % (33.0-36.5); MEAN PLATELET VOLUME 10.1 FL (7.4-10.4); MONOCYTES # (AUTO) 0.2 X10'3 (0-0.9); MONOCYTES % (AUTO) 0.8 % (2-12); NEUTROPHILS # (AUTO) 22.4 X10'3 (1.8-7.7); NEUTROPHILS % (AUTO) 97.2 % (42-75); PLATELET COUNT 184 X10'3 (140-440); RED BLOOD COUNT 3.61 X10'6 (4.20-5.60); RED CELL DISTRIBUTION WIDTH 14.9 % (11.5-14.5)
[2018-03-14 18:38] LABS: ALBUMIN 1.1 G/DL (3.4-5.0); ANION GAP 8 (8-16); BLOOD UREA NITROGEN 90 MG/DL (7-18); BUN/CREATININE RATIO 116.9 (6.6-38.0); CALCIUM 7.3 MG/DL (8.5-10.1); CHLORIDE 115 MMOL/L (99-107); CREATININE 0.77 MG/DL (0.40-0.90); GLUCOSE 190 MG/DL (70-104); POTASSIUM 5.2 MMOL/L (3.5-5.1); SODIUM 148 MMOL/L (135-145); TOTAL CARBON DIOXIDE 25.1 MMOL/L (24-32); eGFR 73 ML/MIN
[2018-03-14 19:29] LABS: ABG BASE EXCESS 0.4 mmol/L (-2.0-3.0); ABG HCO3 25.6 mmol/L (22.0-26.0); ABG PCO2 (T) 43.2 mmHg (32.0-45.0); ABG PH (T) 7.389 (7.350-7.450); ABG PO2 (T) 75.7 mmHg (83-108); FCOHb 0.6 % (0.5-1.5); FMetHb 0.3 % (0.3-1.12); FO2Hb 93.2 % (94-100); MINUTE VOLUME 9 L/min; PATIENT TEMPERATURE 36.7; PEEP 5 cm H2O; RESPIRATORY RATE 24 b/min; RESPIRATORY RATE (OBSERVED) 24 b/min; TIDAL VOLUME 350 mL; TOTAL HEMOGLOBIN 11.3 G/dl (12.0-16.0)
[2018-03-14] MEDS: fat emulsion IV 100 ML, MVI, adult No.4 with vit. K 10 ML, Trace element-5 inj. 1 ML in... IV SCH ×4 (19:31)
[2018-03-14] MEDS: dexmedetomidin/NS 400mcg/100ml 100 ML IV SCH (20:51)
[2018-03-14] MEDS: insulin glargine (Lantus) pen - multi-dose SQ SCH (21:03)
[2018-03-14] MEDS: vasopressin inj. 60 UNIT in normal saline 100ml IV soln 97 ML IV SCH (22:30)
[2018-03-15] VITALS (27 sets, daily range): BP systolic 60–173; BP diastolic 27–84
[2018-03-15] MEDS: mineral oil/petrolatum ophthal oint EACHEYE SCH ×4 (02:24→19:34)
[2018-03-15] MEDS: hydrocortisone sod succ/PF 100mg/2ml inj. IV SCH ×4 (02:25→19:35)
[2018-03-15] MEDS: meropenem inj 500 MG in normal saline 100ml IV soln 100 ML IV SCH ×4 (02:25→19:35)
[2018-03-15] MEDS: FENTANYL-0.9 % NACL/PF 100 ML IV PRN (02:26)
[2018-03-15] MEDS: insulin regular, human vial - multi-dose SQ SCH ×4 (02:29→20:26)
[2018-03-15] MEDS: ipratropium/albuterol 3ml nebule NEB SCH ×6 (02:39→23:14)
[2018-03-15 03:08] LABS: BASOPHILS % (AUTO) 0 % (0-1); EOSINOPHILS # (AUTO) 0.6 X10'3 (0-0.9); HEMATOCRIT 35.7 % (35.0-45.0); HEMOGLOBIN 11.7 g/dl (12.0-16.0); LYMPHOCYTES # (AUTO) 0.2 X10'3 (1.1-4.8); LYMPHOCYTES % (AUTO) 0.6 % (21-51); MEAN CORPUSCULAR HEMOGLOBIN 31.7 PG (27.0-31.0); MEAN CORPUSCULAR HGB CONC 32.8 % (33.0-36.5); MEAN CORPUSCULAR VOLUME 96.8 FL (78-98); MEAN PLATELET VOLUME 10.1 FL (7.4-10.4); MONOCYTES # (AUTO) 0.7 X10'3 (0-0.9); MONOCYTES % (AUTO) 2.3 % (2-12); NEUTROPHILS # (AUTO) 28.4 X10'3 (1.8-7.7); NEUTROPHILS % (AUTO) 95.1 % (42-75); PLATELET COUNT 162 X10'3 (140-440); RED BLOOD COUNT 3.69 X10'6 (4.20-5.60); RED CELL DISTRIBUTION WIDTH 14.9 % (11.5-14.5)
[2018-03-15 03:14] LABS: WHITE BLOOD COUNT 29.9 X10'3 (4.5-11.0)
[2018-03-15 03:25] LABS: ALANINE AMINOTRANSFERASE 100 U/L (12-78); ALBUMIN/GLOBULIN RATIO 0.4 (1.1-1.5); ALKALINE PHOSPHATASE 98 IU/L (46-116); ANION GAP 8 (8-16); ASPARTATE AMINO TRANSFERASE 73 U/L (10-37); BLOOD UREA NITROGEN 97 MG/DL (7-18); BUN/CREATININE RATIO 105.4 (6.6-38.0); CALCIUM 7.1 MG/DL (8.5-10.1); CHLORIDE 114 MMOL/L (99-107); CREATININE 0.92 MG/DL (0.40-0.90); GLUCOSE 202 MG/DL (70-104); MAGNESIUM 1.9 MG/DL (1.5-2.4); PHOSPHORUS 5.4 MG/DL (2.3-4.5); POTASSIUM 5.4 MMOL/L (3.5-5.1); PREALBUMIN 13.9 MG/DL (19-36); SODIUM 147 MMOL/L (135-145); TOTAL CARBON DIOXIDE 25.1 MMOL/L (24-32); TOTAL PROTEIN 3.8 G/DL (6.4-8.2); TRIGLYCERIDES 93 MG/DL (20-135); eGFR 60 ML/MIN
[2018-03-15 03:30] LABS: BURR CELLS 1+; HYPOCHROMASIA 1+; PLATELET ESTIMATE NORMAL; SCHISTOCYTES FEW; TARGET CELLS FEW; TOTAL CELLS COUNTED 100
--- NOTE | 2018-03-15 03:37 | NUR ---
2000..Assessment as noted.
--- NOTE | 2018-03-15 03:37 | NUR ---
1830..Patient in room CICU 2011. I have received report from Autumn ROB and had the opportunity to ask questions and assume patient care.
--- NOTE | 2018-03-15 03:38 | NUR ---
0000..No changes noted.
--- NOTE | 2018-03-15 04:21 | NUR ---
0400..No changes noted.
[2018-03-15 04:31] LABS: ABG BASE EXCESS -4.1 mmol/L (-2.0-3.0); ABG HCO3 21.2 mmol/L (22.0-26.0); ABG OXYGEN SATURATION 94.6 % (95-98); ABG PCO2 (T) 40.9 mmHg (32.0-45.0); ABG PH (T) 7.336 (7.350-7.450); ABG PO2 (T) 83.2 mmHg (83-108); ALLEN'S TEST Positive; FCOHb 0.3 % (0.5-1.5); FMetHb 0.3 % (0.3-1.12); MINUTE VOLUME 9 L/min; PATIENT TEMPERATURE 37.7; PEEP 5 cm H2O; RESPIRATORY RATE 24 b/min; RESPIRATORY RATE (OBSERVED) 25 b/min; TIDAL VOLUME 350 mL; TOTAL HEMOGLOBIN 12.1 G/dl (12.0-16.0)
--- NOTE | 2018-03-15 06:23 | NUR ---
0620..Problems reprioritized. Patient report given, questions answered & plan of care reviewed with Autumn ROB.
[2018-03-15] MEDS: lactobacillus rhamnosus 10,000 MMU CELLS/CAPSULE PO SCH ×2 (08:00→19:47)
[2018-03-15] MEDS: docusate sodium 100mg/10ml UD cup PO SCH ×2 (08:00→19:47)
[2018-03-15] MEDS ORDERED: albumin (Human) 5% 250ml 250 ML IV ONE ×2 (08:35)
[2018-03-15] MEDS ORDERED: albumin (Human) 5% 250ml 500 ML IV ONE (08:37)
[2018-03-15] MEDS ORDERED: vancomycin/NS 1 GM ADD-VANTAGE 250 ML IV SCH (08:55)
[2018-03-15] MEDS: famotidine/PF 10 mg/ml inj IV SCH ×2 (09:15→19:35)
[2018-03-15] MEDS: vancomycin/NS 1 GM ADD-VANTAGE 250 ML IV SCH ×2 (09:16→20:17)
[2018-03-15] MEDS: micafungin inj 100 MG in normal saline 100ml IV soln 100 ML IV SCH (09:16)
[2018-03-15] MEDS ORDERED: vancomycin inj 1,250 MG in normal saline 250ml IV soln 250 ML IV SCH (10:00)
[2018-03-15] MEDS ORDERED: AMIKACIN IV ONE (11:00)
[2018-03-15] MEDS ORDERED: WATER IV ONE (11:00)
[2018-03-15] MEDS ORDERED: DEXTROSE 5% IV ONE (11:00)
[2018-03-15] MEDS: fat emulsion IV 100 ML, MVI, adult No.4 with vit. K 10 ML, Trace element-5 inj. 1 ML in... IV SCH ×4 (17:34)
[2018-03-15] MEDS ORDERED: normal saline 500ml IV soln 1,000 ML IV ONE (18:00)
--- NOTE | 2018-03-15 18:54 | NUR ---
1845..Patient in room CICU 2011. I have received report from LUIS ANGEL ROB and had the opportunity to ask questions and assume patient care.
[2018-03-15] MEDS: NORepinephrine 8mg/ 250ml NS 250 ML IV SCH (20:24)
[2018-03-15] MEDS: insulin glargine (Lantus) pen - multi-dose SQ SCH (20:27)
--- NOTE | 2018-03-15 20:41 | NUR ---
1999..Assessment as noted,both heels now dusky like toe tips, both heels still suleiman, dopplar pulses noted, with no changes from yesterday. Arms continue to weep , dsg to abdomen reinforced.
[2018-03-15] MEDS: dexmedetomidin/NS 400mcg/100ml 100 ML IV SCH (22:00)
[2018-03-16] VITALS (24 sets, daily range): BP systolic 85–128; BP diastolic 42–71
[2018-03-16] MEDS: mineral oil/petrolatum ophthal oint EACHEYE SCH ×4 (01:59→20:15)
[2018-03-16] MEDS: meropenem inj 500 MG in normal saline 100ml IV soln 100 ML IV SCH ×4 (02:00→20:14)
[2018-03-16] MEDS: hydrocortisone sod succ/PF 100mg/2ml inj. IV SCH ×4 (02:02→20:14)
[2018-03-16] MEDS: insulin regular, human vial - multi-dose SQ SCH ×4 (02:15→20:22)
[2018-03-16] MEDS: FENTANYL-0.9 % NACL/PF 100 ML IV PRN ×2 (02:38→16:32)
[2018-03-16] MEDS: ipratropium/albuterol 3ml nebule NEB SCH ×6 (03:03→23:17)
[2018-03-16 03:09] LABS: ALANINE AMINOTRANSFERASE 58 U/L (12-78); ALBUMIN 1.2 G/DL (3.4-5.0); ALBUMIN/GLOBULIN RATIO 0.5 (1.1-1.5); ALKALINE PHOSPHATASE 65 IU/L (46-116); ANION GAP 6 (8-16); ASPARTATE AMINO TRANSFERASE 33 U/L (10-37); BILIRUBIN,TOTAL 1.3 MG/DL (0.1-1.0); BLOOD UREA NITROGEN 108 MG/DL (7-18); BUN/CREATININE RATIO 106.9 (6.6-38.0); CALCIUM 7.4 MG/DL (8.5-10.1); CHLORIDE 115 MMOL/L (99-107); CREATININE 1.01 MG/DL (0.40-0.90); GLUCOSE 118 MG/DL (70-104); MAGNESIUM 1.7 MG/DL (1.5-2.4); PHOSPHORUS 5.4 MG/DL (2.3-4.5); POTASSIUM 5.1 MMOL/L (3.5-5.1); SODIUM 146 MMOL/L (135-145); TOTAL PROTEIN 3.6 G/DL (6.4-8.2); eGFR 54 ML/MIN
--- NOTE | 2018-03-16 03:15 | NUR ---
0000..No changes noted.
[2018-03-16 03:21] LABS: ABG BASE EXCESS -3.3 mmol/L (-2.0-3.0); ABG HCO3 22.6 mmol/L (22.0-26.0); ABG OXYGEN SATURATION 95.1 % (95-98); ABG PCO2 (T) 41.8 mmHg (32.0-45.0); ABG PH (T) 7.344 (7.350-7.450); ALLEN'S TEST Positive; FCOHb 0.3 % (0.5-1.5); FMetHb 0.3 % (0.3-1.12); FO2Hb 94.5 % (94-100); MINUTE VOLUME 8 L/min; PATIENT TEMPERATURE 35.7; PEEP 5 cm H2O; RESPIRATORY RATE 24 b/min; RESPIRATORY RATE (OBSERVED) 25 b/min; TIDAL VOLUME 350 mL; TOTAL HEMOGLOBIN 9.9 G/dl (12.0-16.0)
[2018-03-16 03:22] LABS: BASOPHILS % (AUTO) 0 % (0-1); EOSINOPHILS % (AUTO) 0 % (0-6); HEMATOCRIT 24.8 % (35.0-45.0); HEMOGLOBIN 8.3 g/dl (12.0-16.0); LYMPHOCYTES # (AUTO) 0.4 X10'3 (1.1-4.8); LYMPHOCYTES % (AUTO) 1.6 % (21-51); MEAN CORPUSCULAR HEMOGLOBIN 32.3 PG (27.0-31.0); MEAN CORPUSCULAR HGB CONC 33.6 % (33.0-36.5); MEAN PLATELET VOLUME 10.4 FL (7.4-10.4); MONOCYTES % (AUTO) 4.1 % (2-12); NEUTROPHILS # (AUTO) 23.5 X10'3 (1.8-7.7); NEUTROPHILS % (AUTO) 94.3 % (42-75); PLATELET COUNT 129 X10'3 (140-440); RED BLOOD COUNT 2.58 X10'6 (4.20-5.60); RED CELL DISTRIBUTION WIDTH 14.5 % (11.5-14.5); WHITE BLOOD COUNT 24.9 X10'3 (4.5-11.0)
--- NOTE | 2018-03-16 04:41 | NUR ---
0400..Continues to rest quietly, no changes noted.
[2018-03-16] MEDS: NORepinephrine 8mg/ 250ml NS 250 ML IV SCH ×2 (05:23→13:40)
--- NOTE | 2018-03-16 06:19 | NUR ---
0615..Problems reprioritized. Patient report given, questions answered & plan of care reviewed with Deejay ROB.
[2018-03-16] MEDS: docusate sodium 100mg/10ml UD cup PO SCH ×3 (08:00→19:57)
[2018-03-16] MEDS: lactobacillus rhamnosus 10,000 MMU CELLS/CAPSULE PO SCH ×2 (08:00→08:49)
[2018-03-16] MEDS: dexmedetomidin/NS 400mcg/100ml 100 ML IV SCH (08:48)
[2018-03-16] MEDS: vancomycin/NS 1 GM ADD-VANTAGE 250 ML IV SCH ×2 (08:49→20:14)
[2018-03-16] MEDS: micafungin inj 100 MG in normal saline 100ml IV soln 100 ML IV SCH (08:49)
[2018-03-16] MEDS: famotidine/PF 10 mg/ml inj IV SCH ×2 (08:50→20:14)
[2018-03-16] MEDS ORDERED: AMIKACIN IV ONE (11:30)
[2018-03-16] MEDS ORDERED: WATER IV ONE (11:30)
[2018-03-16] MEDS ORDERED: DEXTROSE 5% IV ONE (11:30)
[2018-03-16] MEDS: fat emulsion IV 100 ML, MVI, adult No.4 with vit. K 10 ML, Trace element-5 inj. 1 ML in... IV SCH ×4 (14:34)
[2018-03-16] MEDS ORDERED: albumin (Human) 5% 250ml 250 ML IV ONE ×3 (15:15→15:35)
--- NOTE | 2018-03-16 15:19 | NUR ---
Reassessment 03/16: Per recent surgeon note patient was found to have ruptured gallbladder which was removed and a T-tube was a G-tube was placed. Patient continuing on TPN, K is WNL, Phosphorus slightly elevated at 5.4 and Sodium is 146. Per MD note TPN will have more free water for hypernatremia. Will not use G-tube yet until OK by surgeon. Will continue to follow. Rec; 1. 3:1 TPN via central line using Clinimix E 5/15 2L bag w/ 100ml 20% intralipids at 100ml/hr goal; to provide 2400ml fluid, 114g AA, 343g DEX(3.7mg/kg/min), and 1396 total non-protein kcals. 2. prealbumin Q /, daily wts 3. Consider non-E TPN if electrolytes continue to be elevated 4. When OK by surgeon to use G-tube recommend starting at a trickle rate of 20 ml/hr using Vital High Protein at 50 ml/hr. Addendum: 03/16/18 at [address] Amended: Links added.
--- NOTE | 2018-03-16 18:24 | NUR ---
Pt stable. Report given to oncoming RN.
--- NOTE | 2018-03-16 18:30 | NUR ---
Patient in room CICU 2011. I have received report from SVETLANA ROB and had the opportunity to ask questions and assume patient care.
--- NOTE | 2018-03-16 19:53 | NUR ---
notified Damari INFORMATION TECHNOLOGY PROGRAM MANAGER at bedside, pt has been in a fib 110s-130s since about shift change. orders received. remains on 12mcg of levophed.
[2018-03-16] MEDS ORDERED: metoprolol tartrate 1mg/ml inj IV ONE (19:55)
[2018-03-16] MEDS: insulin glargine (Lantus) pen - multi-dose SQ SCH (20:21)
[2018-03-16] MEDS: vasopressin inj. 60 UNIT in normal saline 100ml IV soln 97 ML IV SCH (21:53)
--- NOTE | 2018-03-16 22:07 | NUR ---
pt back in a fib, but in high 90s low 100s. pt not receiving anticoagulation. received orders from Wetzel MAX
[2018-03-16] MEDS: enoxaparin 40mg/0.4ml syringe SUBCUT SCH (22:28)
[2018-03-17] VITALS (23 sets, daily range): BP systolic 87–144; BP diastolic 45–74
[2018-03-17] MEDS: dexmedetomidin/NS 400mcg/100ml 100 ML IV SCH ×3 (00:21→20:27)
[2018-03-17] MEDS: NORepinephrine 8mg/ 250ml NS 250 ML IV SCH ×2 (00:22→12:08)
[2018-03-17] MEDS: mineral oil/petrolatum ophthal oint EACHEYE SCH ×4 (02:09→20:48)
[2018-03-17] MEDS: meropenem inj 500 MG in normal saline 100ml IV soln 100 ML IV SCH ×4 (02:09→20:40)
[2018-03-17] MEDS: hydrocortisone sod succ/PF 100mg/2ml inj. IV SCH ×4 (02:09→20:29)
[2018-03-17] MEDS: insulin regular, human vial - multi-dose SQ SCH ×4 (02:12→20:46)
[2018-03-17] MEDS: ipratropium/albuterol 3ml nebule NEB SCH ×6 (03:08→23:20)
[2018-03-17 03:31] LABS: ABG BASE EXCESS -2.4 mmol/L (-2.0-3.0); ABG OXYGEN SATURATION 96.2 % (95-98); ABG PCO2 (T) 40.8 mmHg (32.0-45.0); ABG PH (T) 7.365 (7.350-7.450); ALLEN'S TEST Positive; FCOHb 0.6 % (0.5-1.5); FO2Hb 95.6 % (94-100); MINUTE VOLUME 9 L/min; PATIENT TEMPERATURE 36.3; PEEP 5 cm H2O; RESPIRATORY RATE 24 b/min; RESPIRATORY RATE (OBSERVED) 25 b/min; TIDAL VOLUME 350 mL; TOTAL HEMOGLOBIN 8.7 G/dl (12.0-16.0)
[2018-03-17] MEDS: FENTANYL-0.9 % NACL/PF 100 ML IV PRN ×3 (04:16→23:14)
[2018-03-17 05:31] LABS: BASOPHILS % (AUTO) 0 % (0-1); EOSINOPHILS # (AUTO) 0.2 X10'3 (0-0.9); EOSINOPHILS % (AUTO) 1.4 % (0-6); HEMATOCRIT 22.2 % (35.0-45.0); HEMOGLOBIN 7.4 g/dl (12.0-16.0); LYMPHOCYTES # (AUTO) 0.2 X10'3 (1.1-4.8); LYMPHOCYTES % (AUTO) 1.1 % (21-51); MEAN CORPUSCULAR HEMOGLOBIN 32.2 PG (27.0-31.0); MEAN CORPUSCULAR HGB CONC 33.5 % (33.0-36.5); MEAN CORPUSCULAR VOLUME 96.1 FL (78-98); MEAN PLATELET VOLUME 10.5 FL (7.4-10.4); MONOCYTES # (AUTO) 0.8 X10'3 (0-0.9); MONOCYTES % (AUTO) 4.8 % (2-12); NEUTROPHILS # (AUTO) 15.4 X10'3 (1.8-7.7); NEUTROPHILS % (AUTO) 92.7 % (42-75); PLATELET COUNT 137 X10'3 (140-440); RED BLOOD COUNT 2.32 X10'6 (4.20-5.60); RED CELL DISTRIBUTION WIDTH 14.7 % (11.5-14.5); WHITE BLOOD COUNT 16.6 X10'3 (4.5-11.0)
[2018-03-17 05:37] LABS: ALANINE AMINOTRANSFERASE 51 U/L (12-78); ALBUMIN 1.6 G/DL (3.4-5.0); ALBUMIN/GLOBULIN RATIO 0.6 (1.1-1.5); ALKALINE PHOSPHATASE 72 IU/L (46-116); ANION GAP 9 (8-16); ASPARTATE AMINO TRANSFERASE 30 U/L (10-37); BILIRUBIN,TOTAL 1.3 MG/DL (0.1-1.0); BLOOD UREA NITROGEN 101 MG/DL (7-18); CALCIUM 7.5 MG/DL (8.5-10.1); CHLORIDE 115 MMOL/L (99-107); CREATININE 1.02 MG/DL (0.40-0.90); GLUCOSE 107 MG/DL (70-104); MAGNESIUM 1.7 MG/DL (1.5-2.4); PHOSPHORUS 4.7 MG/DL (2.3-4.5); POTASSIUM 4.5 MMOL/L (3.5-5.1); SODIUM 146 MMOL/L (135-145); TOTAL CARBON DIOXIDE 22.1 MMOL/L (24-32); TOTAL PROTEIN 4.2 G/DL (6.4-8.2); eGFR 53 ML/MIN
--- NOTE | 2018-03-17 06:15 | NUR ---
Problems reprioritized. Patient report given, questions answered & plan of care reviewed with SVETLANA ROB.
[2018-03-17] MEDS ORDERED: VANCOMYCIN LEVEL IV NR (07:30)
[2018-03-17] MEDS: famotidine/PF 10 mg/ml inj IV SCH ×2 (07:49→20:35)
[2018-03-17] MEDS: enoxaparin 40mg/0.4ml syringe SUBCUT SCH ×2 (07:50→20:42)
[2018-03-17] MEDS: docusate sodium 100mg/10ml UD cup PO SCH ×3 (07:51→20:41)
[2018-03-17] MEDS: vancomycin/NS 1 GM ADD-VANTAGE 250 ML IV SCH (07:51)
[2018-03-17 07:52] LABS: LARGE PLATELETS FEW; PLATELET ESTIMATE DECREASED
[2018-03-17] MEDS: micafungin inj 100 MG in normal saline 100ml IV soln 100 ML IV SCH (07:52)
[2018-03-17 07:53] LABS: ANISOCYTOSIS FEW; ROULEAUX 1+; TARGET CELLS 1+
--- NOTE | 2018-03-17 07:53 | NUR ---
Colace not administered via g tube r/t tube to drainage with no meds to be put in it per MD.
[2018-03-17 07:54] LABS: HYPOCHROMASIA 1+
[2018-03-17] MEDS: fat emulsion IV 100 ML, MVI, adult No.4 with vit. K 10 ML, Trace element-5 inj. 1 ML in... IV SCH ×4 (11:18)
[2018-03-17] MEDS ORDERED: albumin (Human) 5% 250ml 250 ML IV ONE (12:45)
[2018-03-17] MEDS ORDERED: levoTHYROXINE sod inj. 100mcg/5 ml vial IV ONE (12:55)
--- NOTE | 2018-03-17 15:38 | NUR ---
Awaiting Synthroid from pharmacy
--- NOTE | 2018-03-17 15:59 | NUR ---
RECOMMEND: 1. Daily bathing with no rinse skin cleanser. 2. Cream/Lotion to be applied to skin after bathing. 3. Marie care Q shift and prn soiling followed by with Barrier Cream. 4. Turn patient Q 1-2 hrs and reposition with pillows. 5. Float heels to offload pressure 6. Abdominal Wound VAC 125mmHg low continuous. 7. Nutritional consult.
--- NOTE | 2018-03-17 16:00 | NUR ---
WOUND VAC EDUCATION PROVIDED BY WOUND CARE 1. Patient instructed to call the Wound Center or their Home Health Agency immediately if: * They notice a change in the color or amount of the fluid in the canister. * Their wound looks more red than usual or has a foul smell. * The skin around their wound looks reddened or irritated. * The dressing feels loose or appears to be loose. * They experience any increase or changes in their pain. * The alarm will not turn off. 2. Patient instructed that they should not be disconnected from suction for more than 2 hours at a time. * If they are not able to get the suction back on, they need to remove the dressing and take all of the foam out of the wound. * Then moisten sterile gauze with normal saline and place on/in the wound. * Change the dressing once a day until arrangements have been made to replace the wound vac dressing. 3. Patient instructed to turn the wound vac machine OFF and call 911 or go to the ED immediately if their canister fills rapidly with blood. 4. If any of these occur while in the hospital tell a nurse immediately.
--- NOTE | 2018-03-17 18:20 | NUR ---
Patient in room CICU 2011. I have received report from LIANE Agarwal and LIANE Shah and had the opportunity to ask questions and assume patient care with Neena Marks RN. Patient sleeping at time of report, ET tube in place 23 at the gum line, FiO2 30%. Patient with the following infusions in the right IJ central line: Precedex at 0.7 mcg/kg/hr. Fentnyl at 100mcg/hr. Normal Saline at 5ml/hr. TPN 100ml/hr, Levophed at 2 mcg/min. [place] Cath in place. G-Tube and T-Tube in place. Wound vac in place, no leaks at this time 125mmHg. Patient opens eyes to verbal stimuli and with care.
--- NOTE | 2018-03-17 18:22 | NUR ---
Report given to mine shifter. Pt stable.
--- NOTE | 2018-03-17 19:00 | NUR ---
[id number]. Central line assessed, per report is pulled out approximately 2 inches. Fluid leaking around dressing. Chest x-ray obtained. Dr. Riley at bedside, viewed x-ray, line assessed by MD. Per Dr. Riley central line is okay to use even with continued leak. Dressing changed with aseptic technique.
[2018-03-17] MEDS: insulin glargine (Lantus) pen - multi-dose SQ SCH (20:48)
[2018-03-17] MEDS: vancomycin inj 500 MG in normal saline 100ml IV soln 100 ML IV SCH (20:59)
[2018-03-18] VITALS (29 sets, daily range): BP systolic 83–158; BP diastolic 37–80
[2018-03-18] MEDS: hydrocortisone sod succ/PF 100mg/2ml inj. IV SCH ×4 (02:12→20:17)
[2018-03-18] MEDS: meropenem inj 500 MG in normal saline 100ml IV soln 100 ML IV SCH ×4 (02:12→20:10)
[2018-03-18] MEDS: mineral oil/petrolatum ophthal oint EACHEYE SCH ×4 (02:12→20:03)
[2018-03-18] MEDS: insulin regular, human vial - multi-dose SQ SCH ×4 (02:15→20:32)
[2018-03-18] MEDS: ipratropium/albuterol 3ml nebule NEB SCH ×6 (02:59→23:24)
[2018-03-18 03:15] LABS: ABG BASE EXCESS -4.5 mmol/L (-2.0-3.0); ABG HCO3 19.9 mmol/L (22.0-26.0); ABG OXYGEN SATURATION 95.5 % (95-98); ABG PCO2 (T) 33.5 mmHg (32.0-45.0); ABG PH (T) 7.392 (7.350-7.450); ABG PO2 (T) 92.9 mmHg (83-108); ALLEN'S TEST Positive; FCOHb 0.6 % (0.5-1.5); FMetHb 0.2 % (0.3-1.12); FO2Hb 94.7 % (94-100); MINUTE VOLUME 12 L/min; PATIENT TEMPERATURE 36.9; PEEP 5 cm H2O; RESPIRATORY RATE 24 b/min; RESPIRATORY RATE (OBSERVED) 29 b/min; TIDAL VOLUME 350 mL; TOTAL HEMOGLOBIN 6.9 G/dl (12.0-16.0)
[2018-03-18 03:22] LABS: ALANINE AMINOTRANSFERASE 47 U/L (12-78); ALBUMIN 1.4 G/DL (3.4-5.0); ALBUMIN/GLOBULIN RATIO 0.6 (1.1-1.5); ALKALINE PHOSPHATASE 77 IU/L (46-116); ANION GAP 10 (8-16); ASPARTATE AMINO TRANSFERASE 31 U/L (10-37); BILIRUBIN,TOTAL 1.1 MG/DL (0.1-1.0); BLOOD UREA NITROGEN 92 MG/DL (7-18); BUN/CREATININE RATIO 113.6 (6.6-38.0); CALCIUM 7.4 MG/DL (8.5-10.1); CHLORIDE 116 MMOL/L (99-107); CREATININE 0.81 MG/DL (0.40-0.90); GLUCOSE 140 MG/DL (70-104); MAGNESIUM 1.7 MG/DL (1.5-2.4); PHOSPHORUS 4.3 MG/DL (2.3-4.5); POTASSIUM 4.2 MMOL/L (3.5-5.1); SODIUM 148 MMOL/L (135-145); TOTAL CARBON DIOXIDE 22.2 MMOL/L (24-32); TOTAL PROTEIN 3.8 G/DL (6.4-8.2); eGFR 69 ML/MIN
[2018-03-18 03:58] LABS: BASOPHILS % (AUTO) 0 % (0-1); EOSINOPHILS # (AUTO) 0.2 X10'3 (0-0.9); EOSINOPHILS % (AUTO) 1.9 % (0-6); LYMPHOCYTES # (AUTO) 0.2 X10'3 (1.1-4.8); LYMPHOCYTES % (AUTO) 1.7 % (21-51); MEAN CORPUSCULAR HGB CONC 33.4 % (33.0-36.5); MEAN CORPUSCULAR VOLUME 95.8 FL (78-98); MEAN PLATELET VOLUME 10.2 FL (7.4-10.4); MONOCYTES # (AUTO) 0.7 X10'3 (0-0.9); MONOCYTES % (AUTO) 6.8 % (2-12); NEUTROPHILS # (AUTO) 8.9 X10'3 (1.8-7.7); NEUTROPHILS % (AUTO) 89.6 % (42-75); PLATELET COUNT 131 X10'3 (140-440); RED BLOOD COUNT 1.88 X10'6 (4.20-5.60); RED CELL DISTRIBUTION WIDTH 14.5 % (11.5-14.5)
--- NOTE | 2018-03-18 04:00 | NUR ---
Patient moving legs more in bed. Is awake and able to respond to questions with blinking of eyes. Answers yes to "Are you in pain." 20mcg Fentanyl bolus administered. Patient repositioned in bed. Oral care and ET tube suctioning with improved patient comfort.
[2018-03-18] MEDS: dexmedetomidin/NS 400mcg/100ml 100 ML IV SCH ×2 (06:00→15:35)
--- NOTE | 2018-03-18 06:26 | NUR ---
report given to receiving rn plan of care reviewed
--- NOTE | 2018-03-18 06:30 | NUR ---
Patient in room CICU 2011. I have received report from Neena Marks RN and had the opportunity to ask questions and assume patient care.
[2018-03-18] MEDS: docusate sodium 100mg/10ml UD cup PO SCH ×3 (08:00→20:20)
[2018-03-18] MEDS: fat emulsion IV 100 ML, MVI, adult No.4 with vit. K 10 ML, Trace element-5 inj. 1 ML in... IV SCH ×4 (09:05)
[2018-03-18] MEDS: famotidine/PF 10 mg/ml inj IV SCH ×2 (09:48→20:11)
[2018-03-18] MEDS: levoTHYROXINE sod inj. 100mcg/5 ml vial IV SCH (09:49)
[2018-03-18] MEDS: enoxaparin 40mg/0.4ml syringe SUBCUT SCH ×2 (09:49→20:20)
[2018-03-18 10:25] LABS: HEMATOCRIT 22.6 % (35.0-45.0); HEMOGLOBIN 7.5 g/dl (12.0-16.0); MEAN CORPUSCULAR HEMOGLOBIN 31.1 PG (27.0-31.0); MEAN CORPUSCULAR HGB CONC 33.1 % (33.0-36.5); MEAN PLATELET VOLUME 9.4 FL (7.4-10.4); PLATELET COUNT 133 X10'3 (140-440); RED CELL DISTRIBUTION WIDTH 15.2 % (11.5-14.5); WHITE BLOOD COUNT 10.7 X10'3 (4.5-11.0)
[2018-03-18] MEDS: micafungin inj 100 MG in normal saline 100ml IV soln 100 ML IV SCH (10:35)
[2018-03-18] MEDS: FENTANYL-0.9 % NACL/PF 100 ML IV PRN ×3 (11:33→22:59)
[2018-03-18] MEDS: vancomycin inj 500 MG in normal saline 100ml IV soln 100 ML IV SCH ×2 (11:59→20:19)
--- NOTE | 2018-03-18 12:30 | NUR ---
Pt restless and overbreathing ventilator rate. Fentanyl gtt titrated to 250 mcg/hr without effect. Ventilator mode changed to spontaneous mode. Pt appears to be tolerating this better. Respiratory rate now 20 bpm, even and unlabored. Pt's eyes closed and she appears to be in no distress.
--- NOTE | 2018-03-18 17:55 | NUR ---
Tube feed pump obtained. Trickle feed started per Dr. Delarosa's order. Jevity at 10 mL/hr.
--- NOTE | 2018-03-18 18:15 | NUR ---
Patient in room CICU 2011. I have received report from LIANE Restrepo and had the opportunity to ask questions and assume patient care. Patient is intubated on a spontaneous setting FiO2 30%. Patient with Levophed, Fentanyl, Precedex, TPN and normal saline infusing through right IJ central line. Line has leaking around insertion site, line still draws and flushes well. Patient with trickle tube feed through G-Tube at a rate of 10ml/hr. Vital signs stable at this time. Wound vac in place at 125 mmHg, dressing is compressed and firm, no leaks. T-Tube in place to right abdomen, draining. Chacon catheter in place. Patient is awake with eyes open, responds to verbal questions with blinking of her eyes, Patient is able to move her legs and move her head from side to side in response to questions. When not being stimulated, patient is calm and resting.
--- NOTE | 2018-03-18 18:17 | NUR ---
Problems reprioritized. Patient report given, questions answered & plan of care reviewed with JASMYN Knight.
[2018-03-18] MEDS: NORepinephrine 8mg/ 250ml NS 250 ML IV SCH (18:49)
[2018-03-18 19:50] LABS: ALANINE AMINOTRANSFERASE 59 U/L (12-78); ALBUMIN 1.5 G/DL (3.4-5.0); ALBUMIN/GLOBULIN RATIO 0.5 (1.1-1.5); ALKALINE PHOSPHATASE 103 IU/L (46-116); ANION GAP 10 (8-16); ASPARTATE AMINO TRANSFERASE 43 U/L (10-37); BILIRUBIN,TOTAL 1.8 MG/DL (0.1-1.0); BLOOD UREA NITROGEN 85 MG/DL (7-18); BUN/CREATININE RATIO 107.6 (6.6-38.0); CALCIUM 7.5 MG/DL (8.5-10.1); CHLORIDE 114 MMOL/L (99-107); CREATININE 0.79 MG/DL (0.40-0.90); GLUCOSE 116 MG/DL (70-104); MAGNESIUM 1.6 MG/DL (1.5-2.4); PHOSPHORUS 4.1 MG/DL (2.3-4.5); SODIUM 148 MMOL/L (135-145); TOTAL CARBON DIOXIDE 24.1 MMOL/L (24-32); TOTAL PROTEIN 4.3 G/DL (6.4-8.2); eGFR 71 ML/MIN
--- NOTE | 2018-03-18 20:24 | NUR ---
spoke to Daisy Wetzel NP regarding pt back in AFIB it appears she went into afib around 1600 today rate controlled at 85-95 Levophed rate has not needed to be increased now that pt is in AFIB, Daisy Wetzel NP stated that as long as the pt is anticoagulated, (she is on Lovenox) and her rate is controlled there is no need for new orders at this time.
[2018-03-18] MEDS: insulin glargine (Lantus) pen - multi-dose SQ SCH (20:33)
[2018-03-18] MEDS: vasopressin inj. 60 UNIT in normal saline 100ml IV soln 97 ML IV SCH (22:30)
[2018-03-19] VITALS (25 sets, daily range): BP systolic 95–156; BP diastolic 45–79
--- NOTE | 2018-03-19 00:15 | NUR ---
Patient heart rhythm changed to sinus bradycardia with at rate of 50-60's. Maintaining blood pressure with Levophed. No other changes in patient condition at this time. Patient continues to blink in response to questions and move with stimulation from care.
[2018-03-19] MEDS: dexmedetomidin/NS 400mcg/100ml 100 ML IV SCH ×2 (01:20→12:04)
[2018-03-19] MEDS: hydrocortisone sod succ/PF 100mg/2ml inj. IV SCH ×3 (02:19→16:22)
[2018-03-19] MEDS: mineral oil/petrolatum ophthal oint EACHEYE SCH ×4 (02:19→20:00)
[2018-03-19] MEDS: meropenem inj 500 MG in normal saline 100ml IV soln 100 ML IV SCH ×4 (02:20→19:36)
[2018-03-19] MEDS: insulin regular, human vial - multi-dose SQ SCH ×4 (02:38→20:07)
[2018-03-19] MEDS: ipratropium/albuterol 3ml nebule NEB SCH ×6 (02:57→22:50)
[2018-03-19 03:20] LABS: PREALBUMIN 15.2 MG/DL (19-36)
--- NOTE | 2018-03-19 04:00 | NUR ---
Patient moving head, and legs in response to oral care and suctioning. Patient with facial grimace, tearful eyes. Patient blinked her eyes once hard in response to "Are you in pain?" question. Bolus of 30 mcg Fentanyl administered with improved patient comfort. Will continue to monitor.
[2018-03-19 04:16] LABS: ABG BASE EXCESS -4.5 mmol/L (-2.0-3.0); ABG HCO3 19.4 mmol/L (22.0-26.0); ABG OXYGEN SATURATION 94.5 % (95-98); ABG PCO2 (T) 29.5 mmHg (32.0-45.0); ALLEN'S TEST Positive; FCOHb 0.6 % (0.5-1.5); FMetHb 0.3 % (0.3-1.12); FO2Hb 93.6 % (94-100); MINUTE VOLUME 13 L/min; PATIENT TEMPERATURE 35.7; PEEP 5 cm H2O; RESPIRATORY RATE (OBSERVED) 21 b/min; TOTAL HEMOGLOBIN 9.8 G/dl (12.0-16.0)
[2018-03-19 04:20] LABS: BASOPHILS % (AUTO) 0 % (0-1); EOSINOPHILS # (AUTO) 0.2 X10'3 (0-0.9); EOSINOPHILS % (AUTO) 1.9 % (0-6); HEMATOCRIT 25.7 % (35.0-45.0); HEMOGLOBIN 8.6 g/dl (12.0-16.0); LYMPHOCYTES # (AUTO) 0.2 X10'3 (1.1-4.8); LYMPHOCYTES % (AUTO) 1.9 % (21-51); MEAN CORPUSCULAR HEMOGLOBIN 31.3 PG (27.0-31.0); MEAN CORPUSCULAR HGB CONC 33.6 % (33.0-36.5); MEAN CORPUSCULAR VOLUME 93.2 FL (78-98); MONOCYTES # (AUTO) 0.7 X10'3 (0-0.9); MONOCYTES % (AUTO) 6.8 % (2-12); NEUTROPHILS # (AUTO) 9.7 X10'3 (1.8-7.7); NEUTROPHILS % (AUTO) 89.4 % (42-75); PLATELET COUNT 129 X10'3 (140-440); RED BLOOD COUNT 2.76 X10'6 (4.20-5.60); RED CELL DISTRIBUTION WIDTH 15.4 % (11.5-14.5); WHITE BLOOD COUNT 10.8 X10'3 (4.5-11.0)
[2018-03-19] MEDS: fat emulsion IV 100 ML, MVI, adult No.4 with vit. K 10 ML, Trace element-5 inj. 1 ML in... IV SCH ×4 (05:20)
--- NOTE | 2018-03-19 06:14 | NUR ---
report given to receiving rn plan of care reviewed
[2018-03-19] MEDS ORDERED: VANCOMYCIN LEVEL IV ONE (07:30)
[2018-03-19] MEDS: micafungin inj 100 MG in normal saline 100ml IV soln 100 ML IV SCH (08:00)
[2018-03-19] MEDS: levoTHYROXINE sod inj. 100mcg/5 ml vial IV SCH (08:00)
[2018-03-19] MEDS: enoxaparin 40mg/0.4ml syringe SUBCUT SCH ×2 (08:00→19:40)
[2018-03-19] MEDS: docusate sodium 100mg/10ml UD cup PO SCH ×2 (08:00→19:40)
[2018-03-19] MEDS: famotidine/PF 10 mg/ml inj IV SCH ×2 (08:00→19:40)
[2018-03-19] MEDS: FENTANYL-0.9 % NACL/PF 100 ML IV PRN (12:03)
--- NOTE | 2018-03-19 18:30 | NUR ---
I have received report and assumed care of pt, pt resting in bed rise and fall of chest cavity equile and symmetrical, no crepitus noted. midline abdominal wound has a wound-vac in place with a good seal, MD orders followed, serious fluid noted, abdominal drain in place draining bile colored fluid. TPN and Jevity in place for nutritional support. PT is weak with 4+ pitting edema generalized. she is able to node her head appropriately to yes no question.
[2018-03-19] MEDS ORDERED: vancomycin inj. 750 MG in normal saline 250ml IV soln 250 ML IV SCH (20:00)
[2018-03-19] MEDS: insulin glargine (Lantus) pen - multi-dose SQ SCH (20:09)
[2018-03-20] VITALS (20 sets, daily range): BP systolic 106–154; BP diastolic 48–82
[2018-03-20] MEDS: hydrocortisone sod succ/PF 100mg/2ml inj. IV SCH ×3 (00:21→20:11)
[2018-03-20] MEDS: fat emulsion IV 100 ML, MVI, adult No.4 with vit. K 10 ML, Trace element-5 inj. 1 ML in... IV SCH ×4 (01:04)
[2018-03-20] MEDS: dexmedetomidin/NS 400mcg/100ml 100 ML IV SCH ×3 (01:12→23:35)
[2018-03-20] MEDS: mineral oil/petrolatum ophthal oint EACHEYE SCH ×4 (02:00→20:12)
[2018-03-20] MEDS: meropenem inj 500 MG in normal saline 100ml IV soln 100 ML IV SCH ×4 (02:24→20:12)
[2018-03-20] MEDS: insulin regular, human vial - multi-dose SQ SCH ×4 (02:35→21:00)
[2018-03-20] MEDS: ipratropium/albuterol 3ml nebule NEB SCH ×6 (02:52→23:04)
[2018-03-20 02:53] LABS: BASOPHILS % (AUTO) 0 % (0-1); EOSINOPHILS # (AUTO) 0.2 X10'3 (0-0.9); EOSINOPHILS % (AUTO) 1.6 % (0-6); HEMATOCRIT 27.8 % (35.0-45.0); HEMOGLOBIN 9.5 g/dl (12.0-16.0); LYMPHOCYTES # (AUTO) 0.2 X10'3 (1.1-4.8); LYMPHOCYTES % (AUTO) 1.5 % (21-51); MEAN CORPUSCULAR HEMOGLOBIN 31.7 PG (27.0-31.0); MEAN CORPUSCULAR VOLUME 93.2 FL (78-98); MEAN PLATELET VOLUME 9.2 FL (7.4-10.4); MONOCYTES # (AUTO) 0.7 X10'3 (0-0.9); MONOCYTES % (AUTO) 5.6 % (2-12); NEUTROPHILS # (AUTO) 11.6 X10'3 (1.8-7.7); NEUTROPHILS % (AUTO) 91.3 % (42-75); PLATELET COUNT 129 X10'3 (140-440); RED BLOOD COUNT 2.98 X10'6 (4.20-5.60); RED CELL DISTRIBUTION WIDTH 14.8 % (11.5-14.5); WHITE BLOOD COUNT 12.8 X10'3 (4.5-11.0)
[2018-03-20 03:09] LABS: ALANINE AMINOTRANSFERASE 57 U/L (12-78); ALBUMIN 1.4 G/DL (3.4-5.0); ALBUMIN/GLOBULIN RATIO 0.5 (1.1-1.5); ALKALINE PHOSPHATASE 110 IU/L (46-116); ANION GAP 9 (8-16); ASPARTATE AMINO TRANSFERASE 32 U/L (10-37); BILIRUBIN,TOTAL 1.1 MG/DL (0.1-1.0); BLOOD UREA NITROGEN 75 MG/DL (7-18); BUN/CREATININE RATIO 113.6 (6.6-38.0); CALCIUM 7.5 MG/DL (8.5-10.1); CHLORIDE 117 MMOL/L (99-107); CREATININE 0.66 MG/DL (0.40-0.90); GLUCOSE 125 MG/DL (70-104); MAGNESIUM 1.6 MG/DL (1.5-2.4); POTASSIUM 3.4 MMOL/L (3.5-5.1); SODIUM 148 MMOL/L (135-145); TOTAL CARBON DIOXIDE 22.1 MMOL/L (24-32); TOTAL PROTEIN 4.4 G/DL (6.4-8.2); eGFR 88 ML/MIN
[2018-03-20] MEDS ORDERED: furosemide 40mg/4ml inj IV ONE (04:20)
[2018-03-20] MEDS ORDERED: furosemide 40mg/4ml inj ONE (04:26)
--- NOTE | 2018-03-20 04:37 | NUR ---
Spoke to forestry consultant nurse practitioner regarding pts need for pain medication as the pt is extubated and no longer on a fentanyl drip, PRN pain medication ordered. Also we pt has a moist cough and lung sounds orders received for 40 mg IV Lasix to be given now. Also we discussed changing electrolyte replacement from IV to liquid via J tube
[2018-03-20] MEDS: potassium Cl oral solution 20 MEQ/15 ML PO PRN (04:54)
--- NOTE | 2018-03-20 06:13 | NUR ---
report given to receiving rn plan of care reviewed
--- NOTE | 2018-03-20 06:15 | NUR ---
Patient in room CICU 2011. I have received report from LIANE Dejesus and had the opportunity to ask questions and assume patient care.
--- NOTE | 2018-03-20 06:30 | NUR ---
Patient in room CICU 2011. I have received report from LIANE Dejesus and had the opportunity to ask questions and assume patient care.
[2018-03-20] MEDS: levoTHYROXINE sod inj. 100mcg/5 ml vial IV SCH (07:36)
[2018-03-20] MEDS: famotidine/PF 10 mg/ml inj IV SCH ×2 (07:36→20:12)
[2018-03-20] MEDS: enoxaparin 40mg/0.4ml syringe SUBCUT SCH ×2 (07:37→20:11)
[2018-03-20] MEDS: HYDROmorphone inj. 0.5 MG/0.5 ML DISP.SYRIN IV PRN ×2 (07:59→13:15)
[2018-03-20] MEDS: docusate sodium 100mg/10ml UD cup PO SCH ×2 (13:00→20:11)
[2018-03-20] MEDS: NORepinephrine 8mg/ 250ml NS 250 ML IV SCH (13:00)
--- NOTE | 2018-03-20 14:51 | NUR ---
Reassessment 03/20: Patient is now extubated. Per surgeon's order patient is receiving trickle tube feeding using Jevity 1.2 at 10 ml/hr and order states to keep at 10 ml. TPN continues at goal. Sodium elevated, aware. Documented BM state no BM since 03/14 however bedside RN reports patient has had multiple small liquid stools. She has been receiving colace BID since 03/09. Pt s/p post cholecystectomy, placement of T-tube, and a G-tube was placed. Patient is very edematous with severe BLE 4+ pitting edema, 4+ generalized, and bilateral arm 4+ edema. Will continue to follow. Rec; 1. 3:1 TPN via central line using Clinimix E 5/15 2L bag w/ 100ml 20% intralipids at 100ml/hr goal; to provide 2400ml fluid, 114g AA, 343g DEX(3.7mg/kg/min), and 1396 total non-protein kcals. 2. prealbumin Q /, daily wts 3. Consider non-E TPN if electrolytes continue to be elevated 4. To provide adequate nutrition recommend advance tube feeding when OK by surgeon to goal rate of 70 ml/hr . Addendum: 03/20/18 at [address] Amended: Links added.
--- NOTE | 2018-03-20 15:00 | NUR ---
Pt tachypnea worsening RR 32 up from 26-28. Accessory muscle usage observed. Requested ABG from Dr. Melgar and RT to evluate for BiPAP.
[2018-03-20 15:16] LABS: ABG HCO3 20.7 mmol/L (22.0-26.0); ABG OXYGEN SATURATION 93.2 % (95-98); ABG PCO2 (T) 32.1 mmHg (32.0-45.0); ABG PH (T) 7.427 (7.350-7.450); ABG PO2 (T) 68.8 mmHg (83-108); ALLEN'S TEST Positive; FCOHb 0.3 % (0.5-1.5); FLOW 2 L/min; FMetHb 0.3 % (0.3-1.12); FO2Hb 92.6 % (94-100); TOTAL HEMOGLOBIN 10.2 G/dl (12.0-16.0)
--- NOTE | 2018-03-20 16:20 | NUR ---
Dr. Melgar called to confirm that he had reviewed ABG results. No additional orders received.
[2018-03-20] MEDS: furosemide 40mg/4ml inj IV SCH (17:09)
--- NOTE | 2018-03-20 18:30 | NUR ---
Patient in room CICU 2012. I have received report from Tigre ROB, and had the opportunity to ask questions and assume patient care.
[2018-03-20] MEDS: insulin glargine (Lantus) pen - multi-dose SQ SCH (21:00)
[2018-03-20] MEDS ORDERED: fat emulsion IV 100 ML, MVI, adult No.4 with vit. K 10 ML, Trace element-5 inj. 1 ML in... IV SCH ×4 (23:00)
[2018-03-21] VITALS (24 sets, daily range): BP systolic 114–159; BP diastolic 56–88
[2018-03-21] MEDS: furosemide 40mg/4ml inj IV SCH ×3 (00:02→16:00)
[2018-03-21] MEDS: mineral oil/petrolatum ophthal oint EACHEYE SCH ×4 (02:00→20:00)
[2018-03-21] MEDS: meropenem inj 500 MG in normal saline 100ml IV soln 100 ML IV SCH ×4 (02:50→20:41)
[2018-03-21] MEDS: ipratropium/albuterol 3ml nebule NEB SCH ×6 (03:01→23:40)
[2018-03-21 03:56] LABS: BASOPHILS % (AUTO) 0 % (0-1); EOSINOPHILS # (AUTO) 0.2 X10'3 (0-0.9); EOSINOPHILS % (AUTO) 1.8 % (0-6); HEMATOCRIT 29.6 % (35.0-45.0); HEMOGLOBIN 9.9 g/dl (12.0-16.0); LYMPHOCYTES # (AUTO) 0.2 X10'3 (1.1-4.8); LYMPHOCYTES % (AUTO) 1.8 % (21-51); MEAN CORPUSCULAR HEMOGLOBIN 31.5 PG (27.0-31.0); MEAN CORPUSCULAR HGB CONC 33.5 % (33.0-36.5); MEAN CORPUSCULAR VOLUME 93.8 FL (78-98); MEAN PLATELET VOLUME 9.5 FL (7.4-10.4); MONOCYTES # (AUTO) 0.7 X10'3 (0-0.9); MONOCYTES % (AUTO) 5.6 % (2-12); NEUTROPHILS # (AUTO) 11.6 X10'3 (1.8-7.7); NEUTROPHILS % (AUTO) 90.8 % (42-75); PLATELET COUNT 120 X10'3 (140-440); RED BLOOD COUNT 3.16 X10'6 (4.20-5.60); WHITE BLOOD COUNT 12.8 X10'3 (4.5-11.0)
[2018-03-21 04:11] LABS: ALANINE AMINOTRANSFERASE 56 U/L (12-78); ALBUMIN 1.5 G/DL (3.4-5.0); ALBUMIN/GLOBULIN RATIO 0.5 (1.1-1.5); ALKALINE PHOSPHATASE 125 IU/L (46-116); ANION GAP 9 (8-16); ASPARTATE AMINO TRANSFERASE 29 U/L (10-37); BILIRUBIN,TOTAL 0.9 MG/DL (0.1-1.0); BLOOD UREA NITROGEN 75 MG/DL (7-18); BUN/CREATININE RATIO 97.4 (6.6-38.0); CALCIUM 7.6 MG/DL (8.5-10.1); CHLORIDE 116 MMOL/L (99-107); CREATININE 0.77 MG/DL (0.40-0.90); GLUCOSE 118 MG/DL (70-104); MAGNESIUM 1.5 MG/DL (1.5-2.4); PHOSPHORUS 4.1 MG/DL (2.3-4.5); SODIUM 150 MMOL/L (135-145); TOTAL CARBON DIOXIDE 24.8 MMOL/L (24-32); TOTAL PROTEIN 4.6 G/DL (6.4-8.2); eGFR 73 ML/MIN
[2018-03-21 04:13] LABS: POTASSIUM 2.7 MMOL/L (3.5-5.1)
[2018-03-21] MEDS: potassium Cl oral solution 20 MEQ/15 ML PO PRN ×4 (04:58→23:01)
--- NOTE | 2018-03-21 06:30 | NUR ---
Patient in room CICU 2012. I have received report from LIANE Garcia and had the opportunity to ask questions and assume patient care.
--- NOTE | 2018-03-21 06:35 | NUR ---
Problems reprioritized. Patient report given, questions answered & plan of care reviewed with Ana ROB.
[2018-03-21] MEDS: famotidine/PF 10 mg/ml inj IV SCH ×2 (07:55→20:41)
[2018-03-21] MEDS: hydrocortisone sod succ/PF 100mg/2ml inj. IV SCH ×2 (07:56→20:41)
[2018-03-21] MEDS: docusate sodium 100mg/10ml UD cup PO SCH ×2 (08:01→20:41)
[2018-03-21] MEDS: enoxaparin 40mg/0.4ml syringe SUBCUT SCH ×2 (08:01→20:42)
[2018-03-21] MEDS: levoTHYROXINE sod inj. 100mcg/5 ml vial IV SCH (08:13)
[2018-03-21] MEDS: insulin regular, human vial - multi-dose SQ SCH ×2 (09:11→14:37)
--- NOTE | 2018-03-21 10:45 | NUR ---
Critical care team at bedside. Informed MD that electrolyes are being replaced, mg IV and K 2.7, Na 150, he states to keep replacing and no changes to TPN orders. He called Dr Bauman to discuss TF/TPN who states to get images with gastroview to assess for SMA sybndrome and duodenal obstruction, which if negative TF can be increased.I also informed him of lots of wound vac output serous and that pt is tachypneic despite sats being 99-100%, serum CO2 WNL and pO2 stable on ABG. Also discussed precedex which he states okay to keep running. He also states hold afternoon dose of lasix one time continue at night, just so potassium can catch up.
--- NOTE | 2018-03-21 10:59 | NUR ---
Pt left room in her bed with IR staff down to Angio for procedure.
[2018-03-21] MEDS ORDERED: diatr meglu/diatrizoate 30ml oral sol.-(3 dose) bottle PO ONE (12:10)
--- NOTE | 2018-03-21 12:25 | NUR ---
Pt went into rapid Afib rate, pt clammy and tachypneic, BP 171/101, charge nurse called to bedside, Dr Melgar was called. He states to give amiodarone bolus and start drip. HR between 130s-170s, will monitor closely.
[2018-03-21] MEDS ORDERED: amiodarone 150mg/dext, iso-os 100 ML IV ONE ×2 (12:32→12:35)
[2018-03-21] MEDS: amiodarone/D5 360MG/200ML BAG 200 ML IV SCH ×2 (12:50→19:08)
[2018-03-21] MEDS: dexmedetomidin/NS 400mcg/100ml 100 ML IV SCH ×2 (12:55→23:44)
--- NOTE | 2018-03-21 13:30 | NUR ---
Rate beginning to slow, pt looks like she is in less distress. Still tachypneic but has been since prior to rapid rate. Rate now 110s-120s. Will continue to run drip and continue to monitor.
[2018-03-21] MEDS: magnesium 2GM in 50ml NS 50 ML IV PRN (17:53)
--- NOTE | 2018-03-21 18:30 | NUR ---
Problems reprioritized. Patient report given, questions answered & plan of care reviewed with LIANE Garcia.
--- NOTE | 2018-03-21 18:35 | NUR ---
Patient in room CICU 2011. I have received report from Ana ROB, and had the opportunity to ask questions and assume patient care.
--- NOTE | 2018-03-21 19:30 | NUR ---
PT resting with no s/s of distress noted. PT is tachypneic, maintaining O2 sats while receiving 2L O2 to NC. BP is stable. W[place] to ABD is CDI. Chacon in place draining to gravity. TF is running @ 10ml/hr. TPN running @ 100ml/hr. Bed is locked and low. Will continue to monitor.
[2018-03-21] MEDS: fat emulsion IV 100 ML, MVI, adult No.4 with vit. K 10 ML, Trace element-5 inj. 1 ML in... IV SCH ×4 (19:32)
[2018-03-21] MEDS ORDERED: diatr meglu/diatrizoate 30ml oral sol.-(3 dose) bottle PO SCH (21:00)
[2018-03-21] MEDS: insulin glargine (Lantus) pen - multi-dose SQ SCH (21:00)
--- NOTE | 2018-03-21 22:15 | NUR ---
PT went to CT accompanied by RN and RT. PT tolerated the transport and procedure well. Will continue to monitor.
[2018-03-22] VITALS (24 sets, daily range): BP systolic 80–132; BP diastolic 34–74
[2018-03-22] MEDS: furosemide 40mg/4ml inj IV SCH ×3 (00:24→15:31)
[2018-03-22] MEDS: amiodarone/D5 360MG/200ML BAG 200 ML IV SCH ×4 (00:39→20:11)
[2018-03-22] MEDS: mineral oil/petrolatum ophthal oint EACHEYE SCH ×4 (02:00→19:53)
[2018-03-22] MEDS: meropenem inj 500 MG in normal saline 100ml IV soln 100 ML IV SCH ×4 (02:12→20:11)
[2018-03-22] MEDS: insulin regular, human vial - multi-dose SQ SCH ×4 (02:31→21:33)
[2018-03-22 03:12] LABS: BASOPHILS % (AUTO) 0 % (0-1); EOSINOPHILS # (AUTO) 0.3 X10'3 (0-0.9); HEMATOCRIT 29.9 % (35.0-45.0); HEMOGLOBIN 10.1 g/dl (12.0-16.0); LYMPHOCYTES # (AUTO) 0.2 X10'3 (1.1-4.8); LYMPHOCYTES % (AUTO) 1.4 % (21-51); MEAN CORPUSCULAR HEMOGLOBIN 31.7 PG (27.0-31.0); MEAN CORPUSCULAR HGB CONC 33.6 % (33.0-36.5); MEAN CORPUSCULAR VOLUME 94.2 FL (78-98); MEAN PLATELET VOLUME 9.5 FL (7.4-10.4); MONOCYTES # (AUTO) 0.6 X10'3 (0-0.9); MONOCYTES % (AUTO) 4.8 % (2-12); NEUTROPHILS # (AUTO) 12.2 X10'3 (1.8-7.7); NEUTROPHILS % (AUTO) 91.8 % (42-75); PLATELET COUNT 124 X10'3 (140-440); RED BLOOD COUNT 3.18 X10'6 (4.20-5.60); RED CELL DISTRIBUTION WIDTH 14.9 % (11.5-14.5); WHITE BLOOD COUNT 13.3 X10'3 (4.5-11.0)
[2018-03-22 03:17] LABS: ALANINE AMINOTRANSFERASE 50 U/L (12-78); ALBUMIN 1.4 G/DL (3.4-5.0); ALBUMIN/GLOBULIN RATIO 0.4 (1.1-1.5); ALKALINE PHOSPHATASE 122 IU/L (46-116); ANION GAP 7 (8-16); ASPARTATE AMINO TRANSFERASE 24 U/L (10-37); BILIRUBIN,TOTAL 0.6 MG/DL (0.1-1.0); BLOOD UREA NITROGEN 75 MG/DL (7-18); BUN/CREATININE RATIO 93.8 (6.6-38.0); CALCIUM 7.5 MG/DL (8.5-10.1); CHLORIDE 117 MMOL/L (99-107); GLUCOSE 165 MG/DL (70-104); MAGNESIUM 1.9 MG/DL (1.5-2.4); PHOSPHORUS 4.1 MG/DL (2.3-4.5); POTASSIUM 3.6 MMOL/L (3.5-5.1); PREALBUMIN 18.7 MG/DL (19-36); SODIUM 150 MMOL/L (135-145); TOTAL CARBON DIOXIDE 26.5 MMOL/L (24-32); TOTAL PROTEIN 4.7 G/DL (6.4-8.2); TRIGLYCERIDES 73 MG/DL (20-135); eGFR 70 ML/MIN
[2018-03-22] MEDS: ipratropium/albuterol 3ml nebule NEB SCH ×6 (04:11→23:17)
--- NOTE | 2018-03-22 06:30 | NUR ---
Patient in room CICU 2012. I have received report from LIANE Garcia and had the opportunity to ask questions and assume patient care.
--- NOTE | 2018-03-22 06:33 | NUR ---
Problems reprioritized. Patient report given, questions answered & plan of care reviewed with Ana ROB.
[2018-03-22] MEDS: famotidine/PF 10 mg/ml inj IV SCH ×2 (07:56→20:11)
[2018-03-22] MEDS: hydrocortisone sod succ/PF 100mg/2ml inj. IV SCH (08:04)
[2018-03-22] MEDS: levoTHYROXINE sod inj. 100mcg/5 ml vial IV SCH (08:09)
--- NOTE | 2018-03-22 08:15 | NUR ---
Dr Melgar and Dr Mccarthy reviewing the CT at bedside, no residuals this morning, hypoactive bowel sounds, all reported to both MDs. They sate to go up to 20 on the TF and check BG again at 1400 before going down on TPN. TF turned up to 20cc/hr.
[2018-03-22] MEDS: docusate sodium 100mg/10ml UD cup PO SCH ×2 (08:22→20:11)
[2018-03-22] MEDS: enoxaparin 40mg/0.4ml syringe SUBCUT SCH ×2 (08:26→20:11)
[2018-03-22] MEDS: potassium Cl oral solution 20 MEQ/15 ML PO PRN (08:28)
--- NOTE | 2018-03-22 11:59 | NUR ---
Reassessment 03/22: Per MD note patient had Gastrografin study performed yesterday and showed good filling of the stomach and tube feedings will be advanced to 20 ml/hr with Jevity. TPN changed yesterday to non-E d/t patient's elevated sodium, discussed at rounds with pharmacy, RN, MD, and RD. Sodium continues at 150. Patient receiving prn replacement for K and Mag. Per bedside RN patient has large BM yesterday after digital disimpaction. Continues to receive colace BID. Will continue to follow. Rec; 1. 3:1 TPN via central line using Clinimix E 5/15 2L bag w/ 100ml 20% intralipids at 100ml/hr goal; to provide 2400ml fluid, 114g AA, 343g DEX(3.7mg/kg/min), and 1396 total non-protein kcals. 2. prealbumin Q /, daily wts 3. Consider non-E TPN if electrolytes continue to be elevated 4. Continue 20 ml/hr tube feeding using Jevity 1.2 per MD. When OK by surgeon and MD recommend advance tube feeding using Jevity 1.2 to goal rate of 70 ml/hr . Addendum: 03/22/18 at [address] Amended: Links added.
[2018-03-22] MEDS: dexmedetomidin/NS 400mcg/100ml 100 ML IV SCH (12:19)
--- NOTE | 2018-03-22 15:24 | NUR ---
Informed Dr Melgar that BP trending down, 80s/30s MAP of 52 and HR trending down in the 60s when pt usually high 70s-90s. He states to give albumin 5% 500cc. Will administer now.
[2018-03-22] MEDS ORDERED: albumin (Human) 5% 250ml 250 ML IV ONE ×2 (15:25)
[2018-03-22] MEDS: fat emulsion IV 100 ML, MVI, adult No.4 with vit. K 10 ML, Trace element-5 inj. 1 ML in... IV SCH ×4 (16:20)
--- NOTE | 2018-03-22 18:23 | NUR ---
Problems reprioritized. Patient report given, questions answered & plan of care reviewed with LIANE Garcia.
--- NOTE | 2018-03-22 18:30 | NUR ---
Patient in room CICU 2012. I have received report from Any ROB, and had the opportunity to ask questions and assume patient care.
[2018-03-22] MEDS ORDERED: VANCOMYCIN LEVEL IV ONE (19:30)
[2018-03-22] MEDS: insulin glargine (Lantus) pen - multi-dose SQ SCH (21:30)
[2018-03-23] VITALS (21 sets, daily range): BP systolic 82–142; BP diastolic 41–66
[2018-03-23] MEDS: furosemide 40mg/4ml inj IV SCH
[2018-03-23] MEDS: dexmedetomidin/NS 400mcg/100ml 100 ML IV SCH ×3 (00:29→17:28)
[2018-03-23] MEDS: amiodarone/D5 360MG/200ML BAG 200 ML IV SCH ×4 (00:55→17:30)
[2018-03-23] MEDS: mineral oil/petrolatum ophthal oint EACHEYE SCH ×4 (02:00→20:24)
[2018-03-23] MEDS: meropenem inj 500 MG in normal saline 100ml IV soln 100 ML IV SCH ×4 (02:09→20:31)
[2018-03-23 03:20] LABS: BASOPHILS % (AUTO) 0 % (0-1); EOSINOPHILS # (AUTO) 0.3 X10'3 (0-0.9); EOSINOPHILS % (AUTO) 2.5 % (0-6); HEMATOCRIT 26.4 % (35.0-45.0); HEMOGLOBIN 8.9 g/dl (12.0-16.0); LYMPHOCYTES # (AUTO) 0.3 X10'3 (1.1-4.8); LYMPHOCYTES % (AUTO) 2.2 % (21-51); MEAN CORPUSCULAR HEMOGLOBIN 31.8 PG (27.0-31.0); MEAN CORPUSCULAR HGB CONC 33.6 % (33.0-36.5); MEAN CORPUSCULAR VOLUME 94.7 FL (78-98); MEAN PLATELET VOLUME 9.4 FL (7.4-10.4); MONOCYTES # (AUTO) 0.6 X10'3 (0-0.9); MONOCYTES % (AUTO) 5.1 % (2-12); NEUTROPHILS # (AUTO) 10.5 X10'3 (1.8-7.7); NEUTROPHILS % (AUTO) 90.2 % (42-75); PLATELET COUNT 109 X10'3 (140-440); RED BLOOD COUNT 2.79 X10'6 (4.20-5.60); RED CELL DISTRIBUTION WIDTH 14.8 % (11.5-14.5); WHITE BLOOD COUNT 11.7 X10'3 (4.5-11.0)
[2018-03-23] MEDS: ipratropium/albuterol 3ml nebule NEB SCH ×6 (03:23→23:14)
[2018-03-23 03:32] LABS: ALANINE AMINOTRANSFERASE 39 U/L (12-78); ALBUMIN 1.5 G/DL (3.4-5.0); ALBUMIN/GLOBULIN RATIO 0.5 (1.1-1.5); ALKALINE PHOSPHATASE 108 IU/L (46-116); ANION GAP 6 (8-16); ASPARTATE AMINO TRANSFERASE 18 U/L (10-37); BILIRUBIN,TOTAL 0.5 MG/DL (0.1-1.0); BLOOD UREA NITROGEN 79 MG/DL (7-18); BUN/CREATININE RATIO 102.6 (6.6-38.0); CALCIUM 7.6 MG/DL (8.5-10.1); CHLORIDE 116 MMOL/L (99-107); CREATININE 0.77 MG/DL (0.40-0.90); GLUCOSE 100 MG/DL (70-104); MAGNESIUM 1.8 MG/DL (1.5-2.4); PHOSPHORUS 4.2 MG/DL (2.3-4.5); POTASSIUM 3.6 MMOL/L (3.5-5.1); SODIUM 149 MMOL/L (135-145); TOTAL CARBON DIOXIDE 26.9 MMOL/L (24-32); TOTAL PROTEIN 4.5 G/DL (6.4-8.2); eGFR 73 ML/MIN
--- NOTE | 2018-03-23 06:36 | NUR ---
Patient in room CICU 2012. I have received report from LIANE Garcia and had the opportunity to ask questions and assume patient care.
[2018-03-23] MEDS ORDERED: hydrocortisone sod succ/PF 100mg/2ml inj. IV SCH (08:00)
[2018-03-23] MEDS: insulin regular, human vial - multi-dose SQ SCH ×2 (08:34→20:09)
[2018-03-23] MEDS: enoxaparin 40mg/0.4ml syringe SUBCUT SCH ×2 (08:46→20:28)
[2018-03-23] MEDS: famotidine/PF 10 mg/ml inj IV SCH ×2 (08:47→20:25)
[2018-03-23] MEDS: docusate sodium 100mg/10ml UD cup PO SCH ×2 (08:56→20:29)
--- NOTE | 2018-03-23 10:02 | NUR ---
IRENE tx triaged at 0700
[2018-03-23] MEDS: levoTHYROXINE sod inj. 100mcg/5 ml vial IV SCH (11:02)
--- NOTE | 2018-03-23 11:50 | NUR ---
Tube feeding and TPN consult. MD request to decrease TPN to half rate of 50 ml/hr, d/w , RN, Pharmacy and a request to increase tube feeding from 20 ml/hr to 30 ml/hr using Jevity 1.2, which makes the TF at almost half the goal of 70 ml/hr, d/w RN. Will continue to follow. Rec; 1. 3:1 TPN via central line using Clinimix E 5/15 2L bag w/ 100ml 20% intralipids at 50ml/hr goal; to provide 2400ml fluid, 114g AA, 343g DEX(3.7mg/kg/min), and 1396 total non-protein kcals. 2. prealbumin Q /, daily wts 3. Consider non-E TPN if electrolytes continue to be elevated 4. Increase tube feeding to 30 ml/hr using Jevity 1.2 per MD. Advance per MD to recommended goal rate of 70 ml/hr . Addendum: 03/23/18 at [address] Amended: Links added. Addendum: 03/23/18 at [address] Tube feeding and TPN consult. MD request to decrease TPN to half rate of 50 ml/hr, d/w MD, RN, Pharmacy and a request to increase tube feeding from 20 ml/hr to 30 ml/hr using Jevity 1.2, which makes the TF at almost half the goal of 70 ml/hr, d/w RN. Will continue to follow. Rec; 1. 3:1 TPN via central line using Clinimix non-E 5/15 2L bag w/ 100ml 20% intralipids at 50ml/hr goal; to provide 2400ml fluid, 114g AA, 343g DEX(3.7mg/kg/min), and 1396 total non-protein kcals. 2. prealbumin Q /, daily wts 3. Consider non-E TPN if electrolytes continue to be elevated 4. Increase tube feeding to 30 ml/hr using Jevity 1.2 per MD. Advance per MD to recommended goal rate of 70 ml/hr .
[2018-03-23] MEDS: fat emulsion IV 100 ML, MVI, adult No.4 with vit. K 10 ML, Trace element-5 inj. 1 ML in... IV SCH ×8 (13:38→13:41)
[2018-03-23] MEDS: furosemide 20 MG/2 ML vial IV SCH (15:50)
--- NOTE | 2018-03-23 18:03 | NUR ---
pt going in and out of Afib throughout the day, mostly in SR. SBP ranging 80's-90's most the day. Sats >92% on 2L NC, RR remaining high 30's to 40's with shallow breaths. Soap suds enema and disimpaction performed with positive result. Pt non-verbal throughout the day, occasionally opens her eyes. Tube feed dose increased from 20 to 30, and TPN dose decreased from 100 to 50. Good output via wound vac. Doppler of right arm performed d/t MD concerned for possible DVT d/t edema. Doppler negative for DVT. IV Lasix given with minimal result.
--- NOTE | 2018-03-23 18:08 | NUR ---
1500 SVN tx triaged
--- NOTE | 2018-03-23 19:00 | NUR ---
Patient in room CICU 2012. I have received report from Alison ROB and had the opportunity to ask questions and assume patient care.
[2018-03-23] MEDS: insulin glargine (Lantus) pen - multi-dose SQ SCH (20:08)
[2018-03-24] VITALS (24 sets, daily range): BP systolic 81–126; BP diastolic 32–71
--- NOTE | 2018-03-24 02:00 | NUR ---
PT has been less responsive, respirations have been steadily in the 40's. Pulse oximetry read at 97% Pt hasn't had an ABG in two days, discussed with Sandra Mckenzie SENIOR MEDIA DIRECTOR. She did not want to get one at this time, wanted to discuss with store operations manager in the am.
[2018-03-24] MEDS: ipratropium/albuterol 3ml nebule NEB SCH ×6 (02:51→22:39)
[2018-03-24] MEDS: meropenem inj 500 MG in normal saline 100ml IV soln 100 ML IV SCH ×4 (02:55→21:00)
[2018-03-24] MEDS: mineral oil/petrolatum ophthal oint EACHEYE SCH ×4 (02:58→20:00)
[2018-03-24] MEDS: insulin regular, human vial - multi-dose SQ SCH ×2 (03:02→09:24)
[2018-03-24 03:37] LABS: BASOPHILS % (AUTO) 0 % (0-1); EOSINOPHILS # (AUTO) 0.3 X10'3 (0-0.9); EOSINOPHILS % (AUTO) 2.1 % (0-6); HEMATOCRIT 29.7 % (35.0-45.0); HEMOGLOBIN 9.9 g/dl (12.0-16.0); LYMPHOCYTES # (AUTO) 0.3 X10'3 (1.1-4.8); LYMPHOCYTES % (AUTO) 2.4 % (21-51); MEAN CORPUSCULAR HEMOGLOBIN 31.8 PG (27.0-31.0); MEAN CORPUSCULAR HGB CONC 33.1 % (33.0-36.5); MEAN CORPUSCULAR VOLUME 96.1 FL (78-98); MEAN PLATELET VOLUME 9.2 FL (7.4-10.4); MONOCYTES # (AUTO) 0.6 X10'3 (0-0.9); MONOCYTES % (AUTO) 4.5 % (2-12); NEUTROPHILS # (AUTO) 11.1 X10'3 (1.8-7.7); PLATELET COUNT 126 X10'3 (140-440); RED BLOOD COUNT 3.09 X10'6 (4.20-5.60); RED CELL DISTRIBUTION WIDTH 14.9 % (11.5-14.5); WHITE BLOOD COUNT 12.2 X10'3 (4.5-11.0)
[2018-03-24 03:57] LABS: ALANINE AMINOTRANSFERASE 43 U/L (12-78); ALBUMIN 1.6 G/DL (3.4-5.0); ALBUMIN/GLOBULIN RATIO 0.5 (1.1-1.5); ALKALINE PHOSPHATASE 125 IU/L (46-116); ANION GAP 7 (8-16); ASPARTATE AMINO TRANSFERASE 22 U/L (10-37); BILIRUBIN,TOTAL 0.5 MG/DL (0.1-1.0); BLOOD UREA NITROGEN 85 MG/DL (7-18); BUN/CREATININE RATIO 95.5 (6.6-38.0); CALCIUM 8.2 MG/DL (8.5-10.1); CHLORIDE 115 MMOL/L (99-107); CREATININE 0.89 MG/DL (0.40-0.90); GLUCOSE 121 MG/DL (70-104); POTASSIUM 4.2 MMOL/L (3.5-5.1); SODIUM 147 MMOL/L (135-145); TOTAL CARBON DIOXIDE 25.2 MMOL/L (24-32); TOTAL PROTEIN 4.9 G/DL (6.4-8.2); eGFR 62 ML/MIN
[2018-03-24] MEDS: amiodarone/D5 360MG/200ML BAG 200 ML IV SCH ×3 (05:43→19:23)
--- NOTE | 2018-03-24 06:48 | NUR ---
Received care of pt after report and found pt to be on 2L NC with sats in the mid 70's. Pt deep suctioned, NRB placed and sats stable at this time. RT paged for abg.
[2018-03-24 07:25] LABS: ABG BASE EXCESS -7.8 mmol/L (-2.0-3.0); ABG HCO3 20.7 mmol/L (22.0-26.0); ABG OXYGEN SATURATION 94.1 % (95-98); ABG PCO2 (T) 57.8 mmHg (32.0-45.0); ABG PH (T) 7.172 (7.350-7.450); ALLEN'S TEST Positive; FCOHb 0.3 % (0.5-1.5); FLOW 10 L/min; FMetHb 0.1 % (0.3-1.12); FO2Hb 93.7 % (94-100); TOTAL HEMOGLOBIN 9.6 G/dl (12.0-16.0)
[2018-03-24] MEDS ORDERED: normal saline 1000ml 1,000 ML IV ONE ×2 (07:30→11:20)
--- NOTE | 2018-03-24 07:39 | NUR ---
PA paged with abg results, hypotension and pt's inability to clear secretions and decreased loc. New orders for bipap, fluid bolus and levo if needed. RT at bedside, bolus infusing.
[2018-03-24] MEDS: NORepinephrine 8mg/ 250ml NS 250 ML IV SCH ×3 (07:55→23:27)
[2018-03-24] MEDS: furosemide 20 MG/2 ML vial IV SCH ×2 (08:00)
--- NOTE | 2018-03-24 08:13 | NUR ---
Bolus given, Levo started and quickly titrated up; bp 81/33. Sats 96% now on Bipap settings of 50% 12/10. Addendum: 03/24/18 at 0818 by Donna Shah RN PA updated via phone by paula ROB. chest x ray ordered.
[2018-03-24] MEDS: levoTHYROXINE sod inj. 100mcg/5 ml vial IV SCH (09:00)
[2018-03-24] MEDS: enoxaparin 40mg/0.4ml syringe SUBCUT SCH ×2 (09:01→20:59)
[2018-03-24] MEDS: docusate sodium 100mg/10ml UD cup PO SCH ×2 (09:02→20:00)
[2018-03-24] MEDS: famotidine/PF 10 mg/ml inj IV SCH ×2 (09:02→20:59)
[2018-03-24] MEDS ORDERED: normal saline 1000ml 1,000 ML IVB ONE (11:22)
[2018-03-24] MEDS: normal saline 1000ml 1,000 ML IV SCH (11:56)
[2018-03-24] MEDS ORDERED: normal saline 1000ml 1,000 ML IV SCH ×2 (12:10→23:25)
[2018-03-24 12:11] LABS: ABG BASE EXCESS -8.9 mmol/L (-2.0-3.0); ABG HCO3 19.2 mmol/L (22.0-26.0); ABG OXYGEN SATURATION 96.7 % (95-98); ABG PCO2 (T) 51.2 mmHg (32.0-45.0); ABG PH (T) 7.191 (7.350-7.450); ABG PO2 (T) 94.9 mmHg (83-108); ALLEN'S TEST Positive; FCOHb 0.3 % (0.5-1.5); FMetHb 0.3 % (0.3-1.12); FO2Hb 96.1 % (94-100); MINUTE VOLUME 16 L/min; RESPIRATORY RATE 18 b/min; RESPIRATORY RATE (OBSERVED) 46 b/min; TOTAL HEMOGLOBIN 10.9 G/dl (12.0-16.0)
--- NOTE | 2018-03-24 12:59 | NUR ---
Unable to pass NG in each nare; CCMD aware.
[2018-03-24] MEDS: fat emulsion IV 100 ML, MVI, adult No.4 with vit. K 10 ML, Trace element-5 inj. 1 ML in... IV SCH ×4 (13:19)
--- NOTE | 2018-03-24 13:23 | NUR ---
TPN consult: Per MD progress note pt had a chest x-ray that shows gastric air bubble, G-tube now being used for suctioning. TPN recommendations below, d/w pharmacy. Recommending Non-electrolyte formula d/t pt with elevated Na and Phos with previous elevated electrolytes while receiving electrolyte TPN formula. Will continue to follow. Rec; 1. TPN via central line using Clinimix non-E 5/15 2L bag w/ 100ml 20% intralipids at 100ml/hr goal; to provide 2400ml fluid, 114g AA, 343g DEX(3.7mg/kg/min), and 1396 total non-protein kcals. Initiate @ 30ml/hr and if tolerated advance Q12 to goal. 2. prealbumin Q /, daily wts 3. Monitor electrolytes for need of electrolyte TPN formula 4. monitor for signs of refeeding syndrome 5. advance diet per MD to regular once GI function returns and safe to swallow Addendum: 03/24/18 at [address] Amended: Links added.
--- NOTE | 2018-03-24 13:55 | NUR ---
Pt desated. Bipap settings increased to 24/10 and 100%. CCMD aware. Attempted to call family to update, no answer.
--- NOTE | 2018-03-24 16:09 | NUR ---
GENI aware of pt's low uo. No new orders received. Addendum: 03/24/18 at 1609 by Donna Shah RN Amended: Links added.
--- NOTE | 2018-03-24 17:00 | NUR ---
Kiki called, updated via phone; [facility] Parm[facility] on the phone at this time.
--- NOTE | 2018-03-24 17:01 | NUR ---
called to come and give last rights per Nephew's request.
[2018-03-24] MEDS ORDERED: amiodarone/D5 360MG/200ML BAG 200 ML IV SCH (17:30)
[2018-03-24] MEDS: insulin glargine (Lantus) pen - multi-dose SQ SCH (21:00)
--- NOTE | 2018-03-24 22:00 | NUR ---
Pt was repositioned for comfort. pt ended up with SPo2 in low 70s with bi-pap @100% FIO2. Blood pressure low with systolic pressure in the 60s. February [place] [employer] notified and @ bedside. Orders received to avoid moving patient due to critical state. Titrate levophed as needed to maintain adequate blood pressures.
[2018-03-24] MEDS ORDERED: fat emulsion IV 100 ML, MVI, adult No.4 with vit. K 10 ML, Trace element-5 inj. 1 ML in... IV SCH ×4 (23:00)
[2018-03-25] VITALS (10 sets, daily range): BP systolic 102–131; BP diastolic 30–82
[2018-03-25] MEDS: mineral oil/petrolatum ophthal oint EACHEYE SCH ×2 (00:41→08:45)
[2018-03-25] MEDS: amiodarone/D5 360MG/200ML BAG 200 ML IV SCH ×2 (01:27→05:41)
[2018-03-25] MEDS: meropenem inj 500 MG in normal saline 100ml IV soln 100 ML IV SCH ×2 (02:43→08:45)
[2018-03-25] MEDS: ipratropium/albuterol 3ml nebule NEB SCH ×2 (02:47→08:24)
[2018-03-25] MEDS: normal saline 1000ml 1,000 ML IV SCH (03:02)
[2018-03-25] MEDS: NORepinephrine 8mg/ 250ml NS 250 ML IV SCH (03:07)
--- NOTE | 2018-03-25 06:30 | NUR ---
Patient in room CICU 2011. I have received report from LIANE Villalba and had the opportunity to ask questions and assume patient care.
[2018-03-25] MEDS: levoTHYROXINE sod inj. 100mcg/5 ml vial IV SCH (08:44)
[2018-03-25] MEDS: famotidine/PF 10 mg/ml inj IV SCH (08:44)
[2018-03-25] MEDS: docusate sodium 100mg/10ml UD cup PO SCH (08:44)
[2018-03-25] MEDS: insulin regular, human vial - multi-dose SQ SCH (09:06)
--- NOTE | 2018-03-25 09:24 | NUR ---
Chaplain horne called to contact chasidy ramirez, phone # , awaiting rtn call
[2018-03-25] MEDS ORDERED: fentaNYL/PF 50MCG/1 ML 2ML syringe IV PRN (10:45)
[2018-03-25] MEDS ORDERED: LORazepam 2 mg/ml vial IV PRN (10:45)
--- NOTE | 2018-03-25 10:47 | NUR ---
Anayeli Parmar at bedside and has spoken with Dr Hastings re making patient comfort care and stopping all treatments. Tearful but states that is "the right thing for her, she wouldnt want any of this the way it is now". Comfort care ordered per md and will be carried out. Ghulam stated not necessary to wait for shop manager to see her.
--- NOTE | 2018-03-25 11:37 | NUR ---
PT EXTUBATED TO COMFORT CARE
--- NOTE | 2018-03-25 12:30 | NUR ---
Anayeli Parmar at bedside after patients , provided signatures and consent for release to [facility] in [place]. Support offered and stated he appreciated. [employer] called and arrangements made for merchandise pickup/receiving associate.
--- NOTE | 2018-03-25 12:42 | NUR ---
RN IS TO DOCUMENT YES TO ALL APPLICABLE AREAS Pronouncement of : 1. Time Physician Notified:[id number] 2. Date of :Feb 3. Time of : 1159 4. DNR/Withdraw life support documented:YES 5. Monitor strip has been placed on chart: YES 6. Assessment process is of one-minute duration and includes following criteria: YES a) Patient is unresponsive to all stimuli: YES b) Pupils fixed and non-reactive:YES c) Auscultation of precordium reveals absence of heart tones:YES d) Auscultation of lungs reveals absence of breath sounds: YES e) Absence of blood pressure / all vital signs: YES f) QRS complexes are not present on monitor / EKG strip: YES g) Pacer spikes without capture:YES 4. Comments:
--- NOTE | 2018-03-25 14:14 | NUR ---
Pt has been made DNR w/ comfort care. Will monitor per protocol. Addendum: 03/25/18 at [address] Amended: Links added.
== END 2018-03-25 13:30 | disposition expired | DRG 853 ==
LOC: ER 10:20 → ED HOLD 12:13 → CICU 2S 14:25
PROVIDERS: ADMIT Internal Medicine Critical Care Medicine; ATTEND Internal Medicine Critical Care Medicine
PROC: 5A1955Z Respiratory Ventilation, Greater than 96 Consecutive Hours (ICD-10-PCS; principal; 2018-03-06)
PROC: 0BH17EZ Insertion of Endotracheal Airway into Trachea, Via Natural or Artificial Opening (ICD-10-PCS; 2018-03-06)
PROC: 04HK33Z Insertion of Infusion Device into Right Femoral Artery, Percutaneous Approach (ICD-10-PCS; 2018-03-06)
PROC: B44LZZZ Ultrasonography of Femoral Artery (ICD-10-PCS; 2018-03-06)
PROC: 0D9680Z Drainage of Stomach with Drainage Device, Via Natural or Artificial Opening Endoscopic (ICD-10-PCS; 2018-03-08)
PROC: 0DJ08ZZ Inspection of Upper Intestinal Tract, Via Natural or Artificial Opening Endoscopic (ICD-10-PCS; 2018-03-08)
PROC: 30233R1 Transfusion of Nonautologous Platelets into Peripheral Vein, Percutaneous Approach (ICD-10-PCS; 2018-03-08)
PROC: 0FT40ZZ Resection of Gallbladder, Open Approach (ICD-10-PCS; 2018-03-14)
PROC: 0FC90ZZ Extirpation of Matter from Common Bile Duct, Open Approach (ICD-10-PCS; 2018-03-14)
PROC: 0DH60UZ Insertion of Feeding Device into Stomach, Open Approach (ICD-10-PCS; 2018-03-14)
PROC: 30233N1 Transfusion of Nonautologous Red Blood Cells into Peripheral Vein, Percutaneous Approach (ICD-10-PCS; 2018-03-18)
PROC: 02HV33Z Insertion of Infusion Device into Superior Vena Cava, Percutaneous Approach (ICD-10-PCS; 2018-03-19)
PROC: 5A09357 Assistance with Respiratory Ventilation, Less than 24 Consecutive Hours, Continuous Positive Airway Pressure (ICD-10-PCS; 2018-03-24)
PROC: 5A09357 Assistance with Respiratory Ventilation, Less than 24 Consecutive Hours, Continuous Positive Airway Pressure (ICD-10-PCS; 2018-03-25)
DX: A41.51 Sepsis due to Escherichia coli [E. coli] (principal); R65.21 Severe sepsis with septic shock; J96.00 Acute respiratory failure, unspecified whether with hypoxia or hypercapnia; K82.2 Perforation of gallbladder; N17.9 Acute kidney failure, unspecified; K31.5 Obstruction of duodenum; J90 Pleural effusion, not elsewhere classified; J98.11 Atelectasis; K22.10 Ulcer of esophagus without bleeding; N39.0 Urinary tract infection, site not specified; E87.0 Hyperosmolality and hypernatremia; K80.63 Calculus of gallbladder and bile duct with acute cholecystitis with obstruction; E03.9 Hypothyroidism, unspecified; E87.6 Hypokalemia; F17.200 Nicotine dependence, unspecified, uncomplicated; G25.81 Restless legs syndrome; I48.91 Unspecified atrial fibrillation; K21.9 Gastro-esophageal reflux disease without esophagitis; K25.9 Gastric ulcer, unspecified as acute or chronic, without hemorrhage or perforation; F41.9 Anxiety disorder, unspecified; G62.9 Polyneuropathy, unspecified; I11.9 Hypertensive heart disease without heart failure; Z16.12 Extended spectrum beta lactamase (ESBL) resistance; D69.6 Thrombocytopenia, unspecified; K57.10 Diverticulosis of small intestine without perforation or abscess without bleeding; M81.0 Age-related osteoporosis without current pathological fracture; Z51.5 Encounter for palliative care; Z66 Do not resuscitate; Z85.42 Personal history of malignant neoplasm of other parts of uterus; Z88.0 Allergy status to penicillin; Z90.710 Acquired absence of both cervix and uterus; Z79.899 Other long term (current) drug therapy
CPT/HCPCS: 36415; 36573; 36600; 71045; 71250; 74150; 74176; 76700; 76937; 80048; 80053; 80202; 81001; 82150; 82330; 82570; 82803; 82810; 82948; 83605; 83690; 83735; 83880; 84100; 84132; 84134; 84145; 84300; 84443; 84478; 84484; 84560; 85018; 85025; 85027; 85610; 85730; 86885; 86900; 86901; 86920; 87040; 87070; 87077; 87088; 87186; 87207; 88300; 88304; 93005; 93971; 94002; 94003; 94640; 94660; 94760; 96361; 96365; 97110; 97161; 97530; 99285; A6251; A6253; A6446; A6449; A7000; B4087; C9113; G0378; J0282; J0696; J1170; J1450; J1650; J1720; J1815; J1940; J1956; J2060; J2185; J2248; J2250; J2270; J2370; J2405; J3010; J3370; J3475; J3480; J3490; J7030; J7060; J7070; P9016; P9035; P9045; Q9963